=== PATIENT | male | born 1940 | race Caucasian/White ===

== ENCOUNTER 2019-02-15 11:22 | Inpatient (IN) ==
[2019-02-15] MEDS ORDERED: Haloperidol Oral Conc 10 MG/5 ML UDC GTUBE PRN (16:41)
[2019-02-15] MEDS: hydrALAZINE 25 MG TABLET GTUBE SCH (23:46)
[2019-02-16 05:50] LABS: Basophils % 0.6 %; Eosinophils # 0.5 K/mcL (0.0-0.6); Eosinophils % 9.3 %; Hematocrit 33.4 % (37.5-50.1); Immature Granulocytes % 0.6 % (0-4); Lymphocytes # 1.6 K/mcL (0.6-4.6); Lymphocytes % 33.6 %; Mean Corpuscular HGB Conc 32.9 g/dL (31.6-35.5); Mean Corpuscular Hemoglobin 33.1 pg (28.0-33.3); Mean Corpuscular Volume 100.6 fL (83.0-100.0); Mean Platelet Volume 11.4 fL (9.4-12.4); Monocytes # 0.9 K/mcL (0.0-1.3); Monocytes % 17.5 %; Neutrophils # 1.9 K/mcL (1.6-8.9); Platelet Count 193 K/mcL (140-400); Red Blood Count 3.32 M/mcL (4.19-5.50); Segmented Neutrophils % 38.4 %; White Blood Count 4.9 K/mcL (4.3-11.1)
[2019-02-16 05:54] LABS: INR 1.3; Prothrombin Time 14.7 Seconds (9.4-12.1)
[2019-02-16 05:57] LABS: Activated Partial Thrombo Time 30.6 Seconds (26.0-36.0)
[2019-02-16 06:06] LABS: Alanine Aminotransferase 33 Units/L (7-52); Albumin 3.1 g/dL (3.5-5.7); Albumin/Globulin Ratio 1.3 (1.1-2.2); Alkaline Phosphatase 62 Units/L (34-104); Aspartate Amino Transferase 33 Units/L (13-39); BUN/Creatinine Ratio 15 (6-26); Bilirubin,Total 0.6 mg/dL (0.3-1.0); Blood Urea Nitrogen 12 mg/dL (8-23); Calcium 8.4 mg/dL (8.6-10.3); Carbon Dioxide 26 mEq/L (23-29); Chloride 99 mEq/L (98-107); Globulin 2.4 g/dL (2.4-3.5); Glucose 132 mg/dL (70-105); Osmolality,Calculated 272 (280-300); Potassium 4.1 mEq/L (3.5-5.1); Sodium 130 mEq/L (136-145); Total Protein 5.5 g/dL (6.4-8.9); eGFR For African Americans > 60 (> 60); eGFR For Non-African Americans > 60 (> 60)
[2019-02-16] MEDS: Multivit/Ca/Min/Fe/FA 1 TAB TABLET GTUBE SCH (09:22)
[2019-02-16] MEDS: hydrALAZINE 25 MG TABLET GTUBE SCH ×3 (09:23→23:36)
[2019-02-16] MEDS: Aspirin 81 MG TAB.CHEW GTUBE SCH (09:23)
[2019-02-16] MEDS: FLUoxetine HCl Oral Soln 20 MG/5 ML UDC GTUBE SCH (09:23)
[2019-02-16] MEDS: amLODIPine 5 MG TABLET GTUBE SCH (09:23)
--- NOTE | 2019-02-16 10:24 | Internal Med History&Physical ---
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 Patient [facility] with TPA prior to being transferred to [facility] for further treatment. Patient recovery documented with issues of delirium, dysarthria and dysphagia. Patient currently has garbled speech and unable to follow any complex commands. Patient has been uncooperative with care per nursing. Patient remains nothing by mouth and has total nutrition by gastrostomy tube. Patient had no motor deficits noted on exam. We will maintain a systolic blood pressure goal of less than 160. Vital signs been stable. Physical therapy evaluation pending with recommendations. Patient also has been seen by psychology with further recommendations pending. We will continue with current medications Qualifiers: CVA mechanism: unspecified Qualified Code(s): I63.9 - Cerebral infarction, unspecified (2) BPH (benign prostatic hyperplasia) Current visit: Yes Status: Chronic Patient with history of BPH. No current issues. We will continue with current medications. Qualifiers: Lower urinary tract symptom presence: unspecified whether lower urinary tract symptoms present Qualified Code(s): N40.0 - Benign prostatic hyperplasia without lower urinary tract symptoms (3) Hypertension Current visit: No Status: Chronic Vital signs stable during his stay. We will continue with current medications. We will have a systolic blood pressure goal of maintaining less than 160. Qualifiers: Hypertension type: unspecified Qualified Code(s): I10 - Essential (primary) hypertension (4) Delirium Current visit: Yes Status: Acute She continues with delirium, being uncooperative with nursing care. Patient noted to have difficulty following complex directions without was noted to have some compliance when simple tests were demonstrated. Patient continues with expressive aphasia with questionable receptive aphasia. We will continue with Seroquel at at bedtime. Patient to continue with therapy. (5) Dysphagia Current visit: Yes Status: Acute Patient continues with dysphagia remains nothing by mouth with total nutrition through tube feedings. Patient to continue with speech therapy evaluation and treatment. Patient currently on Osmolite 1.2 at 40 mL an hour. Awaiting recom mendations to dietary. We will monitor patient's weight and nutritional status to labs. Qualifiers: Dysphagia type: unspecified Qualified Code(s): R13.10 - Dysphagia, unspecified Internal Medicine - H&P: HPI Chief complaint: right CVA Admitted From: Hospital to Hospital Transfer Plans for Post Hospital Care: Home History of present illness: Mr. Magana is a 78 year old male, who was transferred to this facility from [facility] after being treated for a right temporal CVA. Patient had an ischemic CVA that had later converted to hemorrhagic with a subarachnoid extension. Patient was initially seen at [facility] and treated with TPA prior to being transferred to [facility]. Follow-up imaging remained stable during his stay at [facility]. Patient was treated at [facility] acutely for his CVA and per medical records showed no motor deficits, but did have both dysarthria and delirium. Patient with questionable receptive aphasia, as noted during exam where he is able to follow simple commands by demonstration. Patient has been uncooperative with treatment and care, per nursing reports and was uncooperative for complexed past during his exam. Patient's speech remains garbled with repetitive phrases at times understood. Patient was evaluated by speech therapy at [facility] and was discharged with a peg tube in place and is to remain nothing by mouth. He has total nutritional support per PEG tube. Hx of HTN, which has been well controlled during his recovery. Patient with Hx of BPH and continues on medication. No reports or retention noted. Hx being obtained per medical records. No family present and patient is unable to provide Hx Past Med Surg Social Fam HX - Past Medical History Source: old records reviewed Medical history: glaucoma, hyperlipidemia, hypertension, other (BPH) Psychiatric history: no psych history, other (delirium) - Past Surgical History Additional surgical history: tonsillectomy, heart cath x 2 (no intervention), evac of brain hematoma. - Social History Smoking Status: Never smoker Smokeless Tobacco Status: No Alcohol use: occasionally Drug use: none - Family History Father Living Status: Hx Family Cardiac Disorders: Yes Internal Medicine - H&P: Meds Losartan Potassium [Cozaar] 100 mg PO DAILY 06/29/17 [History] Aspirin [Lo-Dose Aspirin EC] 81 mg PO DAILY 01/20/19 [History] Rosuvastatin [Crestor] 20 mg PO DAILY 01/20/19 [History] Amlodipine Besylate 10 mg PO DAILY 02/15/19 [History] Carvedilol 37.5 mg PO Q12HR 02/15/19 [History] Doxazosin [Cardura] 1 mg PO HS 02/15/19 [History] Esomeprazole Magnesium [Nexium] 40 mg PO BID 02/15/19 [History] FLUoxetine HCl [Fluoxetine HCl] 5 ml PO DAILY 02/15/19 [History] Multivitamin [Daily Multiple Vitamin] 1 each PO DAILY 02/15/19 [History] Quetiapine Fumarate [SEROquel] 12.5 mg PO HS 02/15/19 [History] hydrALAZINE [HydrALAZINE] 75 mg PO Q8HR 02/15/19 [History] Allergy/AdvReac Type Severity Reaction Status Date / Time Penicillins Allergy See Verified 06/29/18 16:36 Comments Poison Amanda Extract Allergy See Verified 02/15/19 18:01 Comments shellfish derived Allergy Rash Verified 06/29/18 16:36 ROS unobtainable: due to mental status All Systems PM: A 10-system review of systems was performed and is negative for pertinent findings except as documented above in the HPI. - Constitutional Constitutional: as per HPI, no chills, no fever(s), no night sweats - EENT Eyes: as per HPI, no change in vision, no discharge, no pain, no photophobia Ears: as per HPI, no ear discharge, no ear pain, no tinnitus Nose, mouth and throat: as per HPI, no dysphagia, no nasal discharge, no neck pain, no sore throat - Breasts Breasts: as per HPI - Cardiovascular Cardiovascular ROS IM: as per HPI, no chest pain, no diaphoresis, no dyspnea, no lightheadedness, no palpitations, no syncope - Respiratory Respiratory: as per HPI, no cough, no dyspnea, no wheezing, no excessive phlegm production - Gastrointestinal Gastrointestinal: as per HPI, no abdominal pain, no diarrhea, no hematemesis, no hematochezia, no melena, no nausea, no vomiting - Genitourinary Genitourinary ROS male: as per HPI - Musculoskeletal Musculoskeletal ROS IM: as per HPI, no numbness, no tingling - Integumentary Integumentary IM: as per HPI, no rash, no unusual bruising - Neurological Neurological ROS: as per HPI, no confusion, no convulsions, no focal weakness, no numbness, no tingling, no tremor(s) - Psychiatric Psychiatric: as per HPI - Hematologic/Lymphatic Hematologic/Lymphatic: no easy bruising - Constitutional Vitals: Temp Pulse Resp BP Pulse Ox 98.7 F 68 20 121/54 94 02/16/19 08:30 02/16/19 08:30 02/16/19 08:30 02/16/19 08:30 02/16/19 08:30 General appearance: Present: A&O X 1 Exam: Patient opens eyes to verbal and seems to respond to name with possbile Ox1 to name. Otherwise, unable to assess orientation due to garbled speech and mostly uncooperative. Patient has been uncooperative with nursing care and does not follow any complex commands. Patient noted to follow simple task when visual example is used. - Head Head exam: Present: atraumatic, normocephalic - Eye Eye exam: Present: PERRL, conjuntiva pink, sclera anicteric Pupils: Present: PERRL - Neck Neck exam general surgery: Present: supple, trachea midline. Absent: lymphadenopathy - Respiratory Respiratory exam: Present: decreased breath sounds, CTAB. Absent: accessory muscle use, rales, rhonchi, wheezes - Cardiovascular Cardiovascular exam: Present: RRR, +S1, +S2. Absent: diastolic murmur, gallop, rubs, systolic murmur - GI/Abdominal GI/Abdominal exam: Present: normal bowel sounds, soft, no peritoneal signs. Absent: distended, tenderness Additional comments: peg tube in place with TF infusing - Extremities Exam Extremities exam: Present: warm, radial pulses palpable and symmetrical. Absent: calf tenderness, cyanotic, pedal edema - Neurological Exam Neurological exam: Present: no focal deficits, speech deficit. Absent: pronater drift, facial droop Additional comments: Exam limited due to confusion. Garbled speech, but at times able to understand phrases, which is freq. repeats. Follows some simple commands by providing visual examples. Reports on ongoing confusion and being uncooperative with nursing care. PINZON with 5/5 MS. No hyperreflexia. - Skin Skin exam: Present: dry, intact Internal Med - H&P Results - Labs CBC & Chem 7: 02/16/19 05:30 02/16/19 05:30 Labs: Short CBC 02/16/19 Range/Units 05:30 WBC 4.9 (4.3-11.1) K/mcL Hgb 11.0 L (12.9-16.9) g/dL Hct 33.4 L (37.5-50.1) % Plt Count 193 (140-400) K/mcL Neutrophils # 1.9 (1.6-8.9) K/mcL BMP 02/16/19 05:30 Sodium 130 L Potassium 4.1 Chloride 99 Carbon Dioxide 26 BUN 12 Creatinine 0.79 Glucose 132 H Calcium 8.4 L Liver Function 02/16/19 Range/Units 05:30 Total Bilirubin 0.6 (0.3-1.0) mg/dL AST 33 (13-39) Units/L ALT 33 (7-52) Units/L Alkaline Phosphatase 62 (34-104) Units/L Albumin 3.1 L (3.5-5.7) g/dL - VTE Documentation of Mechanical Device: Graduated compression elastic hosiery
[2019-02-17] MEDS: hydrALAZINE 25 MG TABLET GTUBE SCH ×3 (07:56→22:39)
[2019-02-17] MEDS: Aspirin 81 MG TAB.CHEW GTUBE SCH (07:57)
[2019-02-17] MEDS: Multivit/Ca/Min/Fe/FA 1 TAB TABLET GTUBE SCH (07:57)
[2019-02-17] MEDS: amLODIPine 5 MG TABLET GTUBE SCH (07:57)
[2019-02-17] MEDS: FLUoxetine HCl Oral Soln 20 MG/5 ML UDC GTUBE SCH (09:59)
--- NOTE | 2019-02-17 10:28 | Internal Med Progress Note ---
Date of Encounter: 02/17/19 Time of Encounter: 10:25 - Assessment and plan (1) CVA (cerebral vascular accident) Current Visit: Yes Status: Acute Assessment and plan: Patient with a right temporal lobe CVA, resulting and hemorrhagic conversion and small SAH. Patient continues with garbled speech and with what appears as receptive aphasia. Patient becomes very restless and at times agitated during care. Patient has been showing poor cooperation with therapy and will be changed to a swing status. No motor deficits noted on exam. We will continue with therapy and current plan of care. We will continue with a blood pressure goal of less than 160. Qualifiers: CVA mechanism: unspecified Qualified Code(s): I63.9 - Cerebral infarction, unspecified (2) BPH (benign prostatic hyperplasia) Current Visit: Yes Status: Chronic Assessment and plan: No acute issues during his stay here. We will continue to monitor patient's voiding. Qualifiers: Lower urinary tract symptom presence: unspecified whether lower urinary tract symptoms present Qualified Code(s): N40.0 - Benign prostatic hyperplasia without lower urinary tract symptoms (3) Hypertension Current Visit: No Status: Chronic Assessment and plan: No acute issues. We will continue to maintain a systolic blood pressure goal of less than 160. Patient did have 1 reading that showed systolic of 182. Will start patient on when necessary clonidine. Qualifiers: Hypertension type: unspecified Qualified Code(s): I10 - Essential (primary) hypertension (4) Delirium Current Visit: Yes Status: Acute Assessment and plan: Patient continues to have poor cooperation with staff during ADLs and therapy. Patient has been changed to a swing status. Nursing reports no behavior issues during the night. Nursing will attend to have limited interaction during the night to ensure patient sleeps, to avoid sleep deprivation as his possible reason for delirium. (5) Dysphagia Current Visit: Yes Status: Acute Assessment and plan: Patient continues with garbled speech. At times patient will have a one-word answers that will be clear. Patient continues with total nutritional intake per gastrostomy tube and remains nothing by mouth Qualifiers: Dysphagia type: unspecified Qualified Code(s): R13.10 - Dysphagia, unspecified - Time Spent With Patient less than 15 minutes - Subjective Interval history: Patient appears alert and is able to answer simple responses such as hello, but unable to answer any complex questioning. Patient's speech remains garbled, but at times he will have clear words, which she has been noted to repeat. Patient's therapy has been limited due to his inability to cooperate. Patient with difficulty on following directions, but has been noted to follow simple com mands through demonstration. Today nursing reports no behavior issues through the night. - Constitutional Vitals: Temp Pulse Resp BP Pulse Ox 100.5 F H 70 17 130/62 95 02/17/19 08:19 02/17/19 08:19 02/17/19 08:19 02/17/19 08:19 02/17/19 08:19 General appearance: Present: A&O X 1 Exam: Patient does track and appears to recognize his name. Response to readings with a low, but unable to answer any more complexing questions. When patient does speak his speech remains garbled. Patient unable to follow most commands although patient has been observed following simple commands through demonstration. - Head Head exam: Present: atraumatic, normocephalic - Eye Eye exam: Present: PERRL, conjuntiva pink, sclera anicteric Pupils: Present: PERRL - Neck Neck exam general surgery: Present: supple, trachea midline. Absent: lymphadenopathy - Respiratory Respiratory exam: Present: decreased breath sounds, CTAB. Absent: accessory muscle use, rales, rhonchi, wheezes - Cardiovascular Cardiovascular exam: Present: RRR, +S1, +S2. Absent: diastolic murmur, gallop, rubs, systolic murmur - GI/Abdominal GI/Abdominal exam: Present: normal bowel sounds, soft, no peritoneal signs. Absent: distended, tenderness Additional comments: Gastrostomy tube in place with insertion site appearing healthy. Patient with tube feeding infusing at 60 mL an hour. - Extremities Exam Extremities exam: Present: warm, radial pulses palpable and symmetrical. Absent: calf tenderness, cyanotic, pedal edema - Neurological Exam Neurological exam: Present: oriented X3, no focal deficits. Absent: pronater drift, facial droop, speech deficit Additional comments: Exam limited due to patient's inability to verbalize or follow any commands. Patient has garbled speech and has been suspected of receptive aphasia due to his inability to follow directions, but showing some compliance with simple commands strain demonstration. No motor deficits noted on exam with extremities movement spontaneously with a 5/5 muscle strength. - Skin Skin exam: Present: dry, intact Internal Medicine: Result - Labs CBC & Chem 7: 02/16/19 05:30 02/16/19 05:30 - ABG Interpretation ABG results: PT/INR, D-dimer PT 14.7 Seconds (9.4-12.1) H 02/16/19 05:30 - VTE Documentation of Mechanical Device: Graduated compression elastic hosiery Consult Discharge Plan - Plan Referrals: Nicolás Marshall DO [Primary Care Provider] -
[2019-02-18] MEDS: hydrALAZINE 25 MG TABLET GTUBE SCH ×3 (09:49→23:56)
[2019-02-18] MEDS: amLODIPine 5 MG TABLET GTUBE SCH (09:50)
[2019-02-18] MEDS: Multivit/Ca/Min/Fe/FA 1 TAB TABLET GTUBE SCH (09:50)
[2019-02-18] MEDS: Aspirin 81 MG TAB.CHEW GTUBE SCH (09:50)
[2019-02-18] MEDS: FLUoxetine HCl Oral Soln 20 MG/5 ML UDC GTUBE SCH (09:50)
--- NOTE | 2019-02-18 10:47 | Internal Med Progress Note ---
Date of Encounter: 02/18/19 Time of Encounter: 10:44 - Assessment and plan (1) CVA (cerebral vascular accident) Current Visit: Yes Status: Acute Assessment and plan: Continue PT, OT and ST. Will follow progress. No new neurological deficits. Follow up with neurologist as scheduled. Qualifiers: CVA mechanism: unspecified Qualified Code(s): I63.9 - Cerebral infarction, unspecified (2) Hypertension Current Visit: Yes Status: Chronic Assessment and plan: Controlled with current medication. Monitor blood pressure. Qualifiers: Hypertension type: unspecified Qualified Code(s): I10 - Essential (primary) hypertension (3) BPH (benign prostatic hyperplasia) Current Visit: Yes Status: Chronic Assessment and plan: No new symptoms. Continue current medication. Qualifiers: Lower urinary tract symptom presence: unspecified whether lower urinary tract symptoms present Qualified Code(s): N40.0 - Benign prostatic hyperplasia without lower urinary tract symptoms (4) Delirium Current Visit: Yes Status: Acute Assessment and plan: Possibly due to sleep deprivation. Discussed with therapy and nursing staff to decreased stimuli and provide rest breaks in between therapy. (5) Dysphagia Current Visit: Yes Status: Acute Assessment and plan: Continue enternal feeds through G-tube. Qualifiers: Dysphagia type: unspecified Qualified Code(s): R13.10 - Dysphagia, unspecified - Time Spent With Patient less than 15 minutes - Subjective Interval history: resting in bed, responds off and on to questions with single words. nursing staff reports pt continues to be anxious and fidgeting at times. discussed with nursing and therapy staff that this could be due to sleep deprivation and will need to provide rest and decrease stimuli. unable to participate in HPI. reported diarrhea last night but none today so far. - Constitutional Vitals: Temp Pulse Resp BP Pulse Ox 99.3 F 70 16 124/63 94 02/18/19 08:06 02/18/19 08:06 02/18/19 08:06 02/18/19 08:06 02/18/19 08:06 General appearance: Present: A&O X 1, no acute distress - Head Head exam: Present: atraumatic, normocephalic - Eye Eye exam: Present: PERRL, conjuntiva pink, sclera anicteric Pupils: Present: PERRL - Neck Neck exam general surgery: Present: supple, trachea midline. Absent: lymphadenopathy - Respiratory Respiratory exam: Present: CTAB. Absent: accessory muscle use, rales, rhonchi, wheezes - Cardiovascular Cardiovascular exam: Present: RRR, +S1, +S2. Absent: diastolic murmur, gallop, rubs, systolic murmur - GI/Abdominal GI/Abdominal exam: Present: normal bowel sounds, soft, no peritoneal signs. Absent: distended, tenderness Additional comments: g-tube site nonindurated. - Extremities Exam Extremities exam: Present: warm, radial pulses palpable and symmetrical. Absent: calf tenderness, cyanotic, pedal edema - Neurological Exam Neurological exam: Present: CN II-XII intact, oriented X3, no focal deficits. Absent: pronater drift, facial droop, speech deficit - Skin Skin exam: Present: dry, intact Internal Medicine: Result - Labs CBC & Chem 7: 02/16/19 05:30 02/16/19 05:30 - ABG Interpretation ABG results: PT/INR, D-dimer PT 14.7 Seconds (9.4-12.1) H 02/16/19 05:30 - VTE Documentation of Mechanical Device: Graduated compression elastic hosiery Consult Discharge Plan - Plan Referrals: Nicolás Marshall DO [Primary Care Provider] -
[2019-02-19] MEDS: hydrALAZINE 25 MG TABLET GTUBE SCH ×2 (08:02→17:23)
[2019-02-19] MEDS: FLUoxetine HCl Oral Soln 20 MG/5 ML UDC GTUBE SCH (08:02)
[2019-02-19] MEDS: Aspirin 81 MG TAB.CHEW GTUBE SCH (08:02)
[2019-02-19] MEDS: amLODIPine 5 MG TABLET GTUBE SCH (08:02)
[2019-02-19] MEDS: Multivit/Ca/Min/Fe/FA 1 TAB TABLET GTUBE SCH (08:02)
--- NOTE | 2019-02-19 08:43 | Internal Med Progress Note ---
Date of Encounter: 02/19/19 Time of Encounter: 08:41 - Assessment and plan (1) Hypertension Current Visit: Yes Status: Chronic Assessment and plan: stable at the present time on meds getting his meds via PEG overall doing fine Qualifiers: Hypertension type: essential hypertension Qualified Code(s): I10 - Essential (primary) hypertension (2) CVA (cerebral vascular accident) Current Visit: Yes Status: Acute Assessment and plan: s/p Internal hemorrhage after ischemic CVA awake responds to command . continue present management Rehab . Hoepfully fucntion will improve with time . Qualifiers: CVA mechanism: unspecified Qualified Code(s): I63.9 - Cerebral infarction, unspecified (3) BPH (benign prostatic hyperplasia) Current Visit: Yes Status: Chronic Assessment and plan: on meds and stable Qualifiers: Lower urinary tract symptom presence: unspecified whether lower urinary tract symptoms present Qualified Code(s): N40.0 - Benign prostatic hyperplasia witho ut lower urinary tract symptoms - Subjective Interval history: Cross coverage . Pt with hx of CVA with later intracranial bleed . he is arousal says few word s and then closes his eyes agai no acute distress at the present time - Constitutional Vitals: Temp Pulse Resp BP Pulse Ox 98.8 F 66 18 117/65 94 02/19/19 07:36 02/19/19 07:36 02/19/19 07:36 02/19/19 07:36 02/19/19 07:36 General appearance: Present: cooperative, A&O X 1, no acute distress Exam: wakes up on command - Head Head exam: Present: atraumatic - Eye Eye exam: Present: EOMI, PERRL Additional comments: closes his both eye together unable to assess if neurological deficit is present - Neck Neck exam general surgery: Present: supple. Absent: tenderness, nuchal rigidity - Respiratory Respiratory exam: Present: CTAB. Absent: prolonged expiratory phase, rales, respiratory distress, rhonchi, stridor, wheezes - Cardiovascular Cardiovascular exam: Present: RRR, +S1, +S2. Absent: JVD, systolic murmur, tachycardia - GI/Abdominal GI/Abdominal exam: Present: normal bowel sounds, soft. Absent: diminished bowel sounds, distended, guarding, rebound, tenderness - Extremities Exam Extremities exam: Absent: pedal edema - Neurological Exam Additional comments: Awake , opens his eyes then shuts closely , doesn't follow command when noted that he could move his legs and arms with stimulus unable to assess cranial nerve deficit however no apparent deviation of face or tongue noted Internal Medicine: Result - Labs CBC & Chem 7: 02/16/19 05:30 02/16/19 05:30 - ABG Interpretation ABG results: PT/INR, D-dimer PT 14.7 Seconds (9.4-12.1) H 02/16/19 05:30 - VTE Documentation of Mechanical Device: Graduated compression elastic hosiery Consult Discharge Plan - Plan Referrals: Nicolás Marshall, [Primary Care Provider] -
[2019-02-20] MEDS: hydrALAZINE 25 MG TABLET GTUBE SCH ×4 (00:06→22:27)
--- NOTE | 2019-02-20 08:03 | Internal Med Progress Note ---
Date of Encounter: 02/20/19 Time of Encounter: 08:01 - Assessment and plan (1) Hypertension Current Visit: Yes Status: Chronic Assessment and plan: Multiple meds , BP is good control if continue to be so good may consider backing off on some as for his age and condition too much orf tight control might cause fall risks later. Qualifiers: Hypertension type: essential hypertension Qualified Code(s): I10 - Essential (primary) hypertension (2) CVA (cerebral vascular accident) Current Visit: Yes Status: Acute Assessment and plan: s/p Internal hemorrhage after ischemic CVA awake responds to command to simple command . Still obtunted but responsive . Avoid all sedatives Qualifiers: CVA mechanism: unspecified Qualified Code(s): I63.9 - Cerebral infarction, unspecified (3) BPH (benign prostatic hyperplasia) Current Visit: Yes Status: Chronic Assessment and plan: on meds and stable . BPH by Hx Qualifiers: Lower urinary tract symptom presence: unspecified whether lower urinary tract symptoms present Qualified Code(s): N40.0 - Benign prostatic hyperplasia w ithout lower urinary tract symptoms - Subjective Interval history: Cross coverage . No new issues noted he opened his eyes on command but then closed it again , opens right eye only left opens but is preferring not to at the present time - Constitutional Vitals: Temp Pulse Resp BP Pulse Ox 98.4 F 72 15 109/63 95 02/20/19 07:24 02/20/19 07:24 02/20/19 07:24 02/20/19 07:24 02/20/19 07:24 General appearance: Present: cooperative, A&O X 1, no acute distress - Eye Eye exam: Present: EOMI, PERRL Additional comments: prefers not to open left eye doesn't seems paralysed - Neck Neck exam general surgery: Present: supple. Absent: tenderness, nuchal rigidity - Respiratory Respiratory exam: Present: CTAB. Absent: chest wall tenderness, rales, respiratory distress - Cardiovascular Cardiovascular exam: Present: RRR, +S1, +S2. Absent: irregular rhythm, JVD - GI/Abdominal GI/Abdominal exam: Present: normal bowel sounds, soft. Absent: rigid, tenderness, no peritoneal signs Additional comments: PEG patent - Extremities Exam Extremities exam: Absent: pedal edema - Neurological Exam Additional comments: pt responds to command opened his eye and then closed stated he is OK but then no response. He was able to move his right arm and leg , left I am not sure at the present time No obvious cranial nerves deficit noted Internal Medicine: Result - Labs CBC & Chem 7: 02/16/19 05:30 02/16/19 05:30 - ABG Interpretation ABG results: PT/INR, D-dimer PT 14.7 Seconds (9.4-12.1) H 02/16/19 05:30 - VTE Documentation of Mechanical Device: Graduated compression elastic hosiery Consult Discharge Plan - Plan Referrals: Nicolás Marshall DO [Primary Care Provider] -
[2019-02-20] MEDS: FLUoxetine HCl Oral Soln 20 MG/5 ML UDC GTUBE SCH (09:40)
[2019-02-20] MEDS: Aspirin 81 MG TAB.CHEW GTUBE SCH (09:41)
[2019-02-20] MEDS: Multivit/Ca/Min/Fe/FA 1 TAB TABLET GTUBE SCH (09:41)
[2019-02-20] MEDS: amLODIPine 5 MG TABLET GTUBE SCH (09:41)
[2019-02-20] MEDS: Latanoprost 2.5 ML BOTTLE BOTH EYES SCH (22:28)
[2019-02-21 06:05] LABS: Basophils % 0.7 %; Eosinophils # 0.4 K/mcL (0.0-0.6); Hematocrit 32.9 % (37.5-50.1); Hemoglobin 10.6 g/dL (12.9-16.9); Immature Granulocytes % 0.3 % (0-4); Lymphocytes % 32.8 %; Mean Corpuscular HGB Conc 32.2 g/dL (31.6-35.5); Mean Corpuscular Hemoglobin 32.5 pg (28.0-33.3); Mean Corpuscular Volume 100.9 fL (83.0-100.0); Mean Platelet Volume 11.3 fL (9.4-12.4); Monocytes # 0.6 K/mcL (0.0-1.3); Monocytes % 9.3 %; Neutrophils # 3.1 K/mcL (1.6-8.9); Platelet Count 160 K/mcL (140-400); Red Blood Count 3.26 M/mcL (4.19-5.50); Red Cell Distribution Width 14.3 % (11.5-14.5); Segmented Neutrophils % 49.9 %; White Blood Count 6.1 K/mcL (4.3-11.1)
[2019-02-21 06:34] LABS: Alanine Aminotransferase 47 Units/L (7-52); Albumin 3.1 g/dL (3.5-5.7); Albumin/Globulin Ratio 1.1 (1.1-2.2); Alkaline Phosphatase 90 Units/L (34-104); Aspartate Amino Transferase 42 Units/L (13-39); BUN/Creatinine Ratio 30 (6-26); Bilirubin,Total 0.6 mg/dL (0.3-1.0); Blood Urea Nitrogen 25 mg/dL (8-23); Calcium 8.5 mg/dL (8.6-10.3); Carbon Dioxide 27 mEq/L (23-29); Chloride 99 mEq/L (98-107); Globulin 2.8 g/dL (2.4-3.5); Glucose 144 mg/dL (70-105); Osmolality,Calculated 281 (280-300); Potassium 4.4 mEq/L (3.5-5.1); Sodium 132 mEq/L (136-145); Total Protein 5.9 g/dL (6.4-8.9); eGFR For African Americans > 60 (> 60); eGFR For Non-African Americans > 60 (> 60)
[2019-02-21] MEDS: hydrALAZINE 25 MG TABLET GTUBE SCH ×2 (08:56→17:25)
[2019-02-21] MEDS: Multivit/Ca/Min/Fe/FA 1 TAB TABLET GTUBE SCH (08:56)
[2019-02-21] MEDS: Aspirin 81 MG TAB.CHEW GTUBE SCH (08:56)
[2019-02-21] MEDS: amLODIPine 5 MG TABLET GTUBE SCH (08:56)
[2019-02-21] MEDS: FLUoxetine HCl Oral Soln 20 MG/5 ML UDC GTUBE SCH (08:56)
--- NOTE | 2019-02-21 10:00 | Internal Med Progress Note ---
Date of Encounter: 02/21/19 Time of Encounter: 09:58 - Assessment and plan (1) CVA (cerebral vascular accident) Current Visit: Yes Status: Acute Assessment and plan: Continue PT, OT and ST. Will follow progress. No new neurological deficits. Follow up with neurologist as scheduled. Qualifiers: CVA mechanism: unspecified Qualified Code(s): I63.9 - Cerebral infarction, unspecified (2) Hypertension Current Visit: Yes Status: Chronic Assessment and plan: Controlled with current medication. Monitor blood pressure. Qualifiers: Hypertension type: essential hypertension Qualified Code(s): I10 - Essential (primary) hypertension (3) BPH (benign prostatic hyperplasia) Current Visit: Yes Status: Chronic Assessment and plan: No new symptoms. Continue current medication. Qualifiers: Lower urinary tract symptom presence: unspecified whether lower urinary tract symptoms present Qualified Code(s): N40.0 - Benign prostatic hyperplasia without lower urinary tract symptoms (4) Delirium Current Visit: Yes Status: Acute Assessment and plan: Possibly due to sleep deprivation. Discussed with therapy and nursing staff to decreased stimuli and provide rest breaks in between therapy. (5) Dysphagia Current Visit: Yes Status: Acute Assessment and plan: Continue enternal feeds through G-tube. Qualifiers: Dysphagia type: unspecified Qualified Code(s): R13.10 - Dysphagia, unspecified - Time Spent With Patient less than 15 minutes - Subjective Interval history: nursing staff reports pt continues to be anxious and fidgeting at times. overstimulated, continue to provide rest and decrease stimuli. unable to participate in HPI. - Constitutional Vitals: Temp Pulse Resp BP Pulse Ox 98.2 F 68 16 124/66 96 02/21/19 06:54 02/21/19 06:54 02/21/19 06:54 02/21/19 06:54 02/21/19 06:54 General appearance: Present: cooperative, A&O X 1, no acute distress Exam: lying in bed - Head Head exam: Present: atraumatic, normocephalic - Eye Eye exam: Present: PERRL, conjuntiva pink, sclera anicteric Pupils: Present: PERRL - Neck Neck exam general surgery: Present: supple, trachea midline. Absent: lymphadenopathy - Respiratory Respiratory exam: Present: CTAB. Absent: accessory muscle use, rales, rhonchi, wheezes - Cardiovascular Cardiovascular exam: Present: RRR, +S1, +S2. Absent: diastolic murmur, gallop, rubs, systolic murmur - GI/Abdominal GI/Abdominal exam: Present: normal bowel sounds, soft, no peritoneal signs. Absent: distended, tenderness - Extremities Exam Extremities exam: Present: warm, radial pulses palpable and symmetrical. Absent: calf tenderness, cyanotic, pedal edema - Neurological Exam Neurological exam: Present: CN II-XII intact, oriented X3, no focal deficits. Absent: pronater drift, facial droop, speech deficit - Skin Skin exam: Present: dry, intact Internal Medicine: Result - Labs CBC & Chem 7: 02/21/19 05:30 02/21/19 05:30 Labs: Short CBC 02/21/19 Range/Units 05:30 WBC 6.1 (4.3-11.1) K/mcL Hgb 10.6 L (12.9-16.9) g/dL Hct 32.9 L (37.5-50.1) % Plt Count 160 (140-400) K/mcL Neutrophils # 3.1 (1.6-8.9) K/mcL BMP 02/21/19 05:30 Sodium 132 L Potassium 4.4 Chloride 99 Carbon Dioxide 27 BUN 25 H Creatinine 0.82 Glucose 144 H Calcium 8.5 L Liver Function 02/21/19 Range/Units 05:30 Total Bilirubin 0.6 (0.3-1.0) mg/dL AST 42 H (13-39) Units/L ALT 47 (7-52) Units/L Alkaline Phosphatase 90 (34-104) Units/L Albumin 3.1 L (3.5-5.7) g/dL - ABG Interpretation ABG results: PT/INR, D-dimer PT 14.7 Seconds (9.4-12.1) H 02/16/19 05:30 - VTE Documentation of Mechanical Device: Graduated compression elastic hosiery Consult Discharge Plan - Plan Referrals: Nicolás Marshall DO [Primary Care Provider] -
[2019-02-21] MEDS: Latanoprost 2.5 ML BOTTLE BOTH EYES SCH (22:36)
[2019-02-22] MEDS: hydrALAZINE 25 MG TABLET GTUBE SCH ×4 (01:34→22:38)
[2019-02-22] MEDS: amLODIPine 5 MG TABLET GTUBE SCH (08:37)
[2019-02-22] MEDS: Multivit/Ca/Min/Fe/FA 1 TAB TABLET GTUBE SCH (08:37)
[2019-02-22] MEDS: FLUoxetine HCl Oral Soln 20 MG/5 ML UDC GTUBE SCH (08:37)
[2019-02-22] MEDS: Aspirin 81 MG TAB.CHEW GTUBE SCH (08:37)
--- NOTE | 2019-02-22 12:04 | Internal Med Progress Note ---
Date of Encounter: 02/22/19 Time of Encounter: 12:02 - Assessment and plan (1) CVA (cerebral vascular accident) Current Visit: Yes Status: Acute Assessment and plan: Continue PT, OT and ST. Will follow progress. No new neurological deficits. Follow up with neurologist as scheduled. Qualifiers: CVA mechanism: unspecified Qualified Code(s): I63.9 - Cerebral infarction, unspecified (2) Hypertension Current Visit: Yes Status: Chronic Assessment and plan: Controlled with current medication. Monitor blood pressure. Qualifiers: Hypertension type: essential hypertension Qualified Code(s): I10 - Essential (primary) hypertension (3) BPH (benign prostatic hyperplasia) Current Visit: Yes Status: Chronic Assessment and plan: No new symptoms. Continue current medication. Qualifiers: Lower urinary tract symptom presence: unspecified whether lower urinary tract symptoms present Qualified Code(s): N40.0 - Benign prostatic hyperplasia without lower urinary tract symptoms (4) Dysphagia Current Visit: Yes Status: Acute Assessment and plan: Continue enternal feeds through G-tube. Qualifiers: Dysphagia type: unspecified Qualified Code(s): R13.10 - Dysphagia, unspecified - Time Spent With Patient less than 15 minutes - Subjective Interval history: sitting up in chair, apears comfortable, no acute distress, was able to answer a coulple questions with 1 worded response. continue to provide rest and decrease stimuli. difficult to obtain full HPI. - Constitutional Vitals: Temp Pulse Resp BP Pulse Ox 98.0 F 72 20 125/65 94 02/22/19 07:30 02/22/19 07:30 02/22/19 07:30 02/22/19 07:30 02/22/19 07:30 General appearance: Present: cooperative, A&O X 1, no acute distress - Head Head exam: Present: atraumatic, normocephalic - Eye Eye exam: Present: PERRL, conjuntiva pink, sclera anicteric Pupils: Present: PERRL - Neck Neck exam general surgery: Present: supple, trachea midline. Absent: lymphadenopathy - Respiratory Respiratory exam: Present: CTAB. Absent: accessory muscle use, rales, rhonchi, wheezes - Cardiovascular Cardiovascular exam: Present: RRR, +S1, +S2. Absent: diastolic murmur, gallop, rubs, systolic murmur - GI/Abdominal GI/Abdominal exam: Present: normal bowel sounds, soft, no peritoneal signs. Absent: distended, tenderness Additional comments: g tube site nonindurated. - Extremities Exam Extremities exam: Present: warm, radial pulses palpable and symmetrical. Absent: calf tenderness, cyanotic, pedal edema - Neurological Exam Neurological exam: Present: CN II-XII intact, oriented X3, no focal deficits. Absent: pronater drift, facial droop, speech deficit - Skin Skin exam: Present: dry, intact Internal Medicine: Result - Labs CBC & Chem 7: 02/21/19 05:30 02/21/19 05:30 - ABG Interpretation ABG results: PT/INR, D-dimer PT 14.7 Seconds (9.4-12.1) H 02/16/19 05:30 - VTE Documentation of Mechanical Device: Graduated compression elastic hosiery Consult Discharge Plan - Plan Referrals: Nicolás Marshall DO [Primary Care Provider] -
[2019-02-22] MEDS: Latanoprost 2.5 ML BOTTLE BOTH EYES SCH (22:38)
[2019-02-23] MEDS: amLODIPine 5 MG TABLET GTUBE SCH (09:46)
[2019-02-23] MEDS: Multivit/Ca/Min/Fe/FA 1 TAB TABLET GTUBE SCH (09:46)
[2019-02-23] MEDS: FLUoxetine HCl Oral Soln 20 MG/5 ML UDC GTUBE SCH (09:46)
[2019-02-23] MEDS: hydrALAZINE 25 MG TABLET GTUBE SCH ×2 (09:46→16:30)
[2019-02-23] MEDS: Aspirin 81 MG TAB.CHEW GTUBE SCH (09:46)
--- NOTE | 2019-02-23 10:26 | Internal Med Progress Note ---
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 Patient continues with garbled speech and with what appears as receptive aphasia. Patient has been showing poor cooperation with therapy and does not follow commands during ADLs per nursing. No motor deficits noted on exam. We will continue with therapy and current plan of care. We will continue with a blood pressure goal of less than 160. Qualifiers: CVA mechanism: unspecified Qualified Code(s): I63.9 - Cerebral infarction, unspecified (2) BPH (benign prostatic hyperplasia) Current Visit: Yes Status: Chronic Assessment and plan: No acute issues during his stay here. We will continue to monitor patient's voiding. Qualifiers: Lower urinary tract symptom presence: unspecified whether lower urinary tract symptoms present Qualified Code(s): N40.0 - Benign prostatic hyperplasia without lower urinary tract symptoms (3) Hypertension Current Visit: Yes Status: Chronic Assessment and plan: No acute issues. We will continue to maintain a systolic blood pressure goal of less than 160. Patient did have 1 reading that showed systolic of 182. Will start patient on when necessary clonidine. Qualifiers: Hypertension type: essential hypertension Qualified Code(s): I10 - Essential (primary) hypertension (4) Delirium Current Visit: Yes Status: Acute Assessment and plan: Patient continues to have poor cooperation with staff during ADLs and therapy. Patient has been changed to a swing status. Nursing reports no behavior issues during the night. (5) Dysphagia Current Visit: Yes Status: Acute Assessment and plan: Patient continues with garbled speech. At times patient will have a one-word answers that will be clear. Patient continues with total nutritional intake per gastrostomy tube and remains nothing by mouth Qualifiers: Dysphagia type: unspecified Qualified Code(s): R13.10 - Dysphagia, unspecified - Time Spent With Patient less than 15 minutes - Subjective Interval history: Patient appears alert and is able to answer simple instant responses, but after the initial response his speech becomes garbled. Patient's therapy has been limited due to his inability to cooperate. Patient with difficulty on following directions, but has been noted to follow simple commands through demonstration. Today nursing reports no behavior issues through the night, but patient reportedly does not follow directions during ADL's. - Constitutional Vitals: Temp Pulse Resp BP Pulse Ox 99.5 F 76 14 115/56 96 02/23/19 08:35 02/23/19 08:35 02/23/19 08:35 02/23/19 08:35 02/23/19 08:35 General appearance: Present: cooperative, A&O X 1, no acute distress Exam: Patient responds to name and tracks with eyes. Patient's speech remains garbled but it is noted that patient is able to make a spontaneous response of 2-3 words that is clear. Patient was asked a question of how are you and he responded with I am doing fine, but afterwards his speech became very garbled with his verbal response. Patient noted to be able to follow simple commands with demonstration such as when testing his muscle strength on exam. Patient observed not following any commands during ADLs when nursing was bathing him. - Head Head exam: Present: atraumatic, normocephalic - Eye Eye exam: Present: PERRL, conjuntiva pink, sclera anicteric Pupils: Present: PERRL - Neck Neck exam general surgery: Present: supple, trachea midline. Absent: lymphadenopathy - Respiratory Respiratory exam: Present: CTAB. Absent: accessory muscle use, rales, rhonchi, wheezes - Cardiovascular Cardiovascular exam: Present: RRR, +S1, +S2. Absent: diastolic murmur, gallop, rubs, systolic murmur - GI/Abdominal GI/Abdominal exam: Present: normal bowel sounds, soft, no peritoneal signs. Absent: distended, tenderness - Extremities Exam Extremities exam: Present: warm, radial pulses palpable and symmetrical. Absent: calf tenderness, cyanotic, pedal edema - Neurological Exam Neurological exam: Present: CN II-XII intact, no focal deficits. Absent: pronater drift, facial droop, speech deficit Additional comments: Exam somewhat limited due to inability of patient to follow any commands. As stated above patient speech remains garbled but has episodes of clear speech during spontaneous quick responses. No focal motor or sensory deficits noted on exam. - Skin Skin exam: Present: dry, intact Internal Medicine: Result - Labs CBC & Chem 7: 02/21/19 05:30 02/21/19 05:30 - ABG Interpretation ABG results: PT/INR, D-dimer PT 14.7 Seconds (9.4-12.1) H 02/16/19 05:30 - VTE Documentation of Mechanical Device: Graduated compression elastic hosiery Consult Discharge Plan - Plan Referrals: Nicolás Marshall DO [Primary Care Provider] -
[2019-02-23] MEDS: Latanoprost 2.5 ML BOTTLE BOTH EYES SCH (21:33)
[2019-02-24] MEDS: amLODIPine 5 MG TABLET GTUBE SCH (08:57)
[2019-02-24] MEDS: hydrALAZINE 25 MG TABLET GTUBE SCH ×3 (08:57→16:50)
[2019-02-24] MEDS: FLUoxetine HCl Oral Soln 20 MG/5 ML UDC GTUBE SCH (08:57)
[2019-02-24] MEDS: Aspirin 81 MG TAB.CHEW GTUBE SCH (08:57)
[2019-02-24] MEDS: Multivit/Ca/Min/Fe/FA 1 TAB TABLET GTUBE SCH (08:57)
--- NOTE | 2019-02-24 09:44 | Internal Med Progress Note ---
Date of Encounter: 02/24/19 Time of Encounter: 09:41 - Assessment and plan (1) CVA (cerebral vascular accident) Current Visit: Yes Status: Acute Assessment and plan: Continue PT, OT and ST. Will follow progress. No new neurological deficits. Follow up with neurologist as scheduled. Qualifiers: CVA mechanism: unspecified Qualified Code(s): I63.9 - Cerebral infarction, unspecified (2) Hypertension Current Visit: Yes Status: Chronic Assessment and plan: Controlled with current medication. Monitor blood pressure. Qualifiers: Hypertension type: essential hypertension Qualified Code(s): I10 - Essential (primary) hypertension (3) BPH (benign prostatic hyperplasia) Current Visit: Yes Status: Chronic Assessment and plan: No new symptoms. Continue current medication. Qualifiers: Lower urinary tract symptom presence: unspecified whether lower urinary tract symptoms present Qualified Code(s): N40.0 - Benign prostatic hyperplasia without lower urinary tract symptoms (4) Dysphagia Current Visit: Yes Status: Acute Assessment and plan: Continue enternal feeds through G-tube. Qualifiers: Dysphagia type: unspecified Qualified Code(s): R13.10 - Dysphagia, unspecified - Time Spent With Patient less than 15 minutes - Subjective Interval history: lying in bed, apears comfortable, no acute distress, was able to answer a couple questions with 1 worded response. continue to provide rest and decrease stimuli. difficult to obtain full HPI. family meeting to be scheduled. cooperating with therapy. - Constitutional Vitals: Temp Pulse Resp BP Pulse Ox 98.6 F 69 18 113/55 96 02/24/19 07:19 02/24/19 07:19 02/24/19 07:19 02/24/19 07:19 02/24/19 07:19 General appearance: Present: cooperative, A&O X 1, no acute distress - Head Head exam: Present: atraumatic, normocephalic - Eye Eye exam: Present: PERRL, conjuntiva pink, sclera anicteric Pupils: Present: PERRL - Neck Neck exam general surgery: Present: supple, trachea midline. Absent: lymphadenopathy - Respiratory Respiratory exam: Present: CTAB. Absent: accessory muscle use, rales, rhonchi, wheezes - Cardiovascular Cardiovascular exam: Present: RRR, +S1, +S2. Absent: diastolic murmur, gallop, rubs, systolic murmur - GI/Abdominal GI/Abdominal exam: Present: normal bowel sounds, soft, no peritoneal signs. Absent: distended, tenderness - Extremities Exam Extremities exam: Present: warm, radial pulses palpable and symmetrical. Absent: calf tenderness, cyanotic, pedal edema - Neurological Exam Neurological exam: Present: CN II-XII intact, oriented X3, no focal deficits. Absent: pronater drift, facial droop, speech deficit - Skin Skin exam: Present: dry, intact Internal Medicine: Result - Labs CBC & Chem 7: 02/21/19 05:30 02/21/19 05:30 - ABG Interpretation ABG results: PT/INR, D-dimer PT 14.7 Seconds (9.4-12.1) H 02/16/19 05:30 - VTE Documentation of Mechanical Device: Graduated compression elastic hosiery Consult Discharge Plan - Plan Referrals: Nicolás Marshall DO [Primary Care Provider] -
[2019-02-24] MEDS: Latanoprost 2.5 ML BOTTLE BOTH EYES SCH (21:34)
[2019-02-25] MEDS: hydrALAZINE 25 MG TABLET GTUBE SCH ×3 (00:45→16:56)
[2019-02-25] MEDS: FLUoxetine HCl Oral Soln 20 MG/5 ML UDC GTUBE SCH (09:31)
[2019-02-25] MEDS: Multivit/Ca/Min/Fe/FA 1 TAB TABLET GTUBE SCH (09:31)
[2019-02-25] MEDS: Aspirin 81 MG TAB.CHEW GTUBE SCH (09:32)
[2019-02-25] MEDS: amLODIPine 5 MG TABLET GTUBE SCH (09:32)
--- NOTE | 2019-02-25 11:29 | Internal Med Progress Note ---
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 Patient continues with garbled speech and with what appears as receptive aphasia. Patient has been showing poor cooperation with therapy and does not follow commands during ADLs per nursing. No motor deficits noted on exam. Has showed some improvement with speech therapy. We will continue with therapy and current plan of care. We will continue with a blood pressure goal of less than 160. Qualifiers: CVA mechanism: unspecified Qualified Code(s): I63.9 - Cerebral infarction, unspecified (2) BPH (benign prostatic hyperplasia) Current Visit: Yes Status: Chronic Assessment and plan: No acute issues during his stay here. We will continue to monitor patient's voiding. Qualifiers: Lower urinary tract symptom presence: unspecified whether lower urinary tract symptoms present Qualified Code(s): N40.0 - Benign prostatic hyperplasia without lower urinary tract symptoms (3) Hypertension Current Visit: Yes Status: Chronic Assessment and plan: No acute issues. We will continue to maintain a systolic blood pressure goal of less than 160. Patient did have 1 reading that showed systolic of 182. Will start patient on when necessary clonidine. Qualifiers: Hypertension type: essential hypertension Qualified Code(s): I10 - Essential (primary) hypertension (4) Dysphagia Current Visit: Yes Status: Acute Assessment and plan: Patient continues with garbled speech. At times patient will have a one-word answers that will be clear. Speech therapy should reports patient had shown some improvement. Patient continues with total nutritional intake per gastrostomy tube and remains nothing by mouth Qualifiers: Dysphagia type: unspecified Qualified Code(s): R13.10 - Dysphagia, unspecified - Time Spent With Patient less than 15 minutes - Subjective Interval history: Patient appears alert and is able to answer simple instant responses, but after the initial response his speech becomes garbled. Patient's therapy has been limited due to his inability to cooperate and patient noted to have difficulty falling most directions during exam. Noted to follow some simple commands t hrough demonstration. Speech therapy has reported patient has had some improvement with swallow. Patient continues to receive his full nutrition through tube feedings - Constitutional Vitals: Temp Pulse Resp BP Pulse Ox 99.3 F 69 14 125/62 96 02/24/19 20:00 02/24/19 20:00 02/24/19 20:00 02/24/19 20:00 02/24/19 20:00 General appearance: Present: cooperative, A&O X 1, no acute distress Exam: Patient noted to be able to answer simple questions with one to 2 word answers appropriately but anything complexed shows no verbal response today. Patient's speech is mostly garbled. Patient unable to follow most directions, but continues to have some response to demonstration on following commands during exam - Head Head exam: Present: atraumatic, normocephalic - Eye Eye exam: Present: PERRL, conjuntiva pink, sclera anicteric Pupils: Present: PERRL - Neck Neck exam general surgery: Present: supple, trachea midline. Absent: lymphaden opathy - Respiratory Respiratory exam: Present: CTAB. Absent: accessory muscle use, rales, rhonchi, wheezes - Cardiovascular Cardiovascular exam: Present: RRR, +S1, +S2. Absent: diastolic murmur, gallop, rubs, systolic murmur - GI/Abdominal GI/Abdominal exam: Present: normal bowel sounds, soft, no peritoneal signs. Absent: distended, tenderness Additional comments: Gastrostomy tube in place with insertion site appearing healthy - Extremities Exam Extremities exam: Present: warm, radial pulses palpable and symmetrical. Absent: calf tenderness, cyanotic, pedal edema - Neurological Exam Neurological exam: Present: CN II-XII intact. Absent: pronater drift, facial droop, speech deficit Additional comments: Patient continues with moderate confusion. Continues to answer simple questions appropriately with one to 2 word answers but after initial response his speech becomes garbled. Today patient shows minimal attention span unless continuously stimulated. No focal motor deficits noted on exam - Skin Skin exam: Present: dry, intact Internal Medicine: Result - Labs CBC & Chem 7: 02/21/19 05:30 02/21/19 05:30 - ABG Interpretation ABG results: PT/INR, D-dimer PT 14.7 Seconds (9.4-12.1) H 02/16/19 05:30 - VTE Documentation of Mechanical Device: Graduated compression elastic hosiery Consult Discharge Plan - Plan Referrals: Nicolás Marshall DO [Primary Care Provider] -
[2019-02-25] MEDS: Latanoprost 2.5 ML BOTTLE BOTH EYES SCH (22:02)
[2019-02-26] MEDS: hydrALAZINE 25 MG TABLET GTUBE SCH ×3 (00:19→17:01)
[2019-02-26] MEDS: Aspirin 81 MG TAB.CHEW GTUBE SCH (09:51)
[2019-02-26] MEDS: amLODIPine 5 MG TABLET GTUBE SCH (09:51)
[2019-02-26] MEDS: Multivit/Ca/Min/Fe/FA 1 TAB TABLET GTUBE SCH (09:51)
[2019-02-26] MEDS: FLUoxetine HCl Oral Soln 20 MG/5 ML UDC GTUBE SCH (09:53)
--- NOTE | 2019-02-26 13:21 | Internal Med Progress Note ---
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 Patient continues with garbled speech and with what appears as receptive aphasia. Patient has been showing poor cooperation with therapy and does not follow commands during ADLs per nursing. No motor deficits noted on exam. Has showed some improvement with speech therapy. We will continue with therapy and current plan of care. We will continue with a blood pressure goal of less than 160. Qualifiers: CVA mechanism: unspecified Qualified Code(s): I63.9 - Cerebral infarction, unspecified (2) BPH (benign prostatic hyperplasia) Current Visit: Yes Status: Chronic Assessment and plan: No acute issues during his stay here. We will continue to monitor patient's voiding. Qualifiers: Lower urinary tract symptom presence: unspecified whether lower urinary tract symptoms present Qualified Code(s): N40.0 - Benign prostatic hyperplasia without lower urinary tract symptoms (3) Hypertension Current Visit: Yes Status: Chronic Assessment and plan: No acute issues. We will continue to maintain a systolic blood pressure goal of less than 160. Patient did have 1 reading that showed systolic of 182. Will start patient on when necessary clonidine. Qualifiers: Hypertension type: essential hypertension Qualified Code(s): I10 - Esse ntial (primary) hypertension (4) Dysphagia Current Visit: Yes Status: Acute Assessment and plan: Patient continues with garbled speech. At times patient will have a one-word answers that will be clear. Speech therapy should reports patient had shown some improvement. Patient continues with total nutritional intake per gastrostomy tube and remains nothing by mouth Qualifiers: Dysphagia type: unspecified Qualified Code(s): R13.10 - Dysphagia, unspecified - Time Spent With Patient less than 15 minutes - Subjective Interval history: Patient appears alert and is able to answer simple instant responses, but after the initial response his speech becomes slower and garbled. Patient's therapy has been limited due to his inability to cooperate and patient noted to have dif ficulty falling most directions during exam. Noted to follow some simple commands through demonstration. Speech therapy has reported patient has had some improvement with swallow. Patient continues to receive his full nutrition through tube feedings - EXAM General appearance: Present: cooperative, A&O X 1, no acute distress Exam: Patient noted to be able to answer simple questions with one to 2 word answers appropriately but anything complexed shows no verbal response today. Patient's speech is mostly garbled. Patient unable to follow most directions, but continues to have some response to demonstration on following commands during exam - Head Head exam: Present: atraumatic, normocephalic - Eye Eye exam: Present: PERRL, conjuntiva pink, sclera anicteric Pupils: Present: PERRL - Neck Neck exam general surgery: Present: supple, trachea midline. Absent: lymphadenopathy - Respiratory Respiratory exam: Present: CTAB. Absent: accessory muscle use, rales, rhonchi, wheezes - Cardiovascular Cardiovascular exam: Present: RRR, +S1, +S2. Absent: diastolic murmur, gallop, rubs, systolic murmur - GI/Abdominal GI/Abdominal exam: Present: normal bowel sounds, soft, no peritoneal signs. Absent: distended, tenderness Additional comments: Gastrostomy tube in place with insertion site appearing healthy - Extremities Exam Extremities exam: Present: warm, radial pulses palpable and symmetrical. Absent: calf tenderness, cyanotic, pedal edema - Neurological Exam Neurological exam: Present: CN II-XII intact. Absent: pronater drift, facial droop, speech deficit Additional comments: Patient continues with moderate confusion. Continues to answer simple questions appropriately with one to 2 word answers but after initial response his speech becomes garbled. Today patient shows minimal attention span unless continuously stimulated. No focal motor deficits noted on exam - Skin Skin exam: Present: dry, intact - Constitutional Vitals: Temp Pulse Resp BP Pulse Ox 99.0 F 69 14 117/63 95 02/26/19 08:57 02/26/19 08:57 02/26/19 08:57 02/26/19 08:57 02/26/19 08:57 General appearance: Present: cooperative, A&O X 1, no acute distress Internal Medicine: Result - Labs CBC & Chem 7: 02/28/19 05:05 02/28/19 05:05 - ABG Interpretation ABG results: PT/INR, D-dimer PT 14.7 Seconds (9.4-12.1) H 02/16/19 05:30 - VTE Documentation of Mechanical Device: Graduated compression elastic hosiery Consult Discharge Plan - Plan Referrals: Nicolás Marshall DO [Primary Care Provider] -
[2019-02-26] MEDS: Latanoprost 2.5 ML BOTTLE BOTH EYES SCH (22:49)
[2019-02-27] MEDS: hydrALAZINE 25 MG TABLET GTUBE SCH ×4 (01:15→23:53)
[2019-02-27] MEDS: Multivit/Ca/Min/Fe/FA 1 TAB TABLET GTUBE SCH (08:40)
[2019-02-27] MEDS: Aspirin 81 MG TAB.CHEW GTUBE SCH (08:40)
[2019-02-27] MEDS: FLUoxetine HCl Oral Soln 20 MG/5 ML UDC GTUBE SCH (08:41)
[2019-02-27] MEDS: amLODIPine 5 MG TABLET GTUBE SCH (08:41)
[2019-02-27] MEDS: Latanoprost 2.5 ML BOTTLE BOTH EYES SCH (23:03)
[2019-02-28 06:02] LABS: Basophils % 0.3 %; Eosinophils # 0.2 K/mcL (0.0-0.6); Eosinophils % 1.6 %; Hematocrit 31.7 % (37.5-50.1); Hemoglobin 10.5 g/dL (12.9-16.9); Immature Granulocytes % 0.6 % (0-4); Lymphocytes # 2.4 K/mcL (0.6-4.6); Lymphocytes % 23.8 %; Mean Corpuscular HGB Conc 33.1 g/dL (31.6-35.5); Mean Corpuscular Hemoglobin 32.8 pg (28.0-33.3); Mean Corpuscular Volume 99.1 fL (83.0-100.0); Mean Platelet Volume 11.5 fL (9.4-12.4); Monocytes % 9.5 %; Neutrophils # 6.6 K/mcL (1.6-8.9); Platelet Count 241 K/mcL (140-400); Red Cell Distribution Width 13.6 % (11.5-14.5); Segmented Neutrophils % 64.2 %; White Blood Count 10.2 K/mcL (4.3-11.1)
[2019-02-28 06:11] LABS: Alanine Aminotransferase 85 Units/L (7-52); Albumin 2.9 g/dL (3.5-5.7); Alkaline Phosphatase 290 Units/L (34-104); Aspartate Amino Transferase 62 Units/L (13-39); BUN/Creatinine Ratio 31 (6-26); Bilirubin,Total 0.7 mg/dL (0.3-1.0); Blood Urea Nitrogen 20 mg/dL (8-23); Calcium 8.3 mg/dL (8.6-10.3); Carbon Dioxide 28 mEq/L (23-29); Chloride 98 mEq/L (98-107); Glucose 203 mg/dL (70-105); Osmolality,Calculated 280 (280-300); Potassium 4.3 mEq/L (3.5-5.1); Sodium 131 mEq/L (136-145); Total Protein 5.9 g/dL (6.4-8.9); eGFR For African Americans > 60 (> 60); eGFR For Non-African Americans > 60 (> 60)
[2019-02-28] MEDS: FLUoxetine HCl Oral Soln 20 MG/5 ML UDC GTUBE SCH (07:38)
[2019-02-28] MEDS: Multivit/Ca/Min/Fe/FA 1 TAB TABLET GTUBE SCH (07:38)
[2019-02-28] MEDS: amLODIPine 5 MG TABLET GTUBE SCH (07:39)
[2019-02-28] MEDS: Aspirin 81 MG TAB.CHEW GTUBE SCH (07:39)
[2019-02-28] MEDS: hydrALAZINE 25 MG TABLET GTUBE SCH ×2 (07:39→16:17)
[2019-02-28 10:03] LABS: Bilirubin,Urine Negative (Negative); Blood,Urine Negative (Negative); Clarity,Urine Clear (Clear); Color,Urine Yellow (Yellow); Glucose,Urine (UA) Normal (Normal); Ketones,Urine Negative (Negative); Leukocyte Esterase,Urine Negative (Negative); Nitrite,Urine Negative (Negative); Protein,Urine 30 mg/dL (Neg-Trace); Specific Gravity,Urine 1.015 (1.010-1.025); Urobilinogen,Urine Normal (Normal)
--- NOTE | 2019-02-28 10:08 | Internal Med Progress Note ---
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 Patient continues with garbled speech and with what appears as receptive aphasia. Patient has been showing poor cooperation with therapy and does not follow commands during ADLs per nursing. No motor deficits noted on exam. Has showed some improvement with speech therapy. Patient has experienced increased drowsiness over the past 2 days, but no acute neurological changes noted on his exam. Patient's had a slight increase in his WBCs are 10.3 and has had a low-grade fever over the past 2 days. We will send urine for urinalysis and obtain chest x-ray. We will continue with therapy and current plan of care. We will continue with a blood pressure goal of less than 160. Qualifiers: CVA mechanism: unspecified Qualified Code(s): I63.9 - Cerebral infarction, unspecified (2) BPH (benign prostatic hyperplasia) Current Visit: Yes Status: Chronic Assessment and plan: No acute issues during his stay here. We will continue to monitor patient's voiding. Qualifiers: Lower urinary tract symptom presence: unspecified whether lower urinary tract symptoms present Qualified Code(s): N40.0 - Benign prostatic hyperplasia without lower urinary tract symptoms (3) Hypertension Current Visit: Yes Status: Chronic Assessment and plan: No acute issues. We will continue to maintain a systolic blood pressure goal of less than 160. Will start patient on when necessary clonidine. Qualifiers: Hypertension type: essential hypertension Qualified Code(s): I10 - Essential (primary) hypertension (4) Dysphagia Current Visit: Yes Status: Acute Assessment and plan: Patient continues with garbled speech. At times patient will have a one-word answers that will be clear. Speech therapy should reports patient had shown some improvement. Patient continues with total nutritional intake per gastrostomy tube and remains nothing by mouth Qualifiers: Dysphagia type: unspecified Qualified Code(s): R13.10 - Dysphagia, unspecified - Time Spent With Patient less than 15 minutes - Subjective Interval history: Patient appears drowsy, but easily awakened and able to answer simple instant responses. After the initial response his speech becomes garbled. Patient's therapy remains limited due to his inability to cooperate and patient noted to have difficulty falling most directions during exam. Noted to follow some simple commands through demonstration. Speech therapy has reported patient has had some improvement with swallow. Patient continues to receive his full nutrition through tube feedings - Constitutional Vitals: Temp Pulse Resp BP Pulse Ox 100.7 F H 85 18 166/69 95 02/28/19 07:29 02/28/19 07:16 02/28/19 07:16 02/28/19 07:16 02/28/19 07:16 General appearance: Present: cooperative, A&O X 1, no acute distress Exam: Patient with clear short answers to simple questions, but garbled full sentences. Follows simple demonstrations for simple commands, but only does verbal simple commands intermittently. - Head Head exam: Present: atraumatic, normocephalic - Eye Eye exam: Present: PERRL, conjuntiva pink, sclera anicteric Pupils: Present: PERRL - Neck Neck exam general surgery: Present: supple, trachea midline. Absent: lymphadenopathy - Respiratory Respiratory exam: Present: CTAB. Absent: accessory muscle use, rales, rhonchi, wheezes - Cardiovascular Cardiovascular exam: Present: RRR, +S1, +S2. Absent: diastolic murmur, gallop, rubs, systolic murmur - GI/Abdominal GI/Abdominal exam: Present: normal bowel sounds, soft, no peritoneal signs. Absent: distended, tenderness - Extremities Exam Extremities exam: Present: warm, radial pulses palpable and symmetrical. Absent: calf tenderness, cyanotic, pedal edema - Neurological Exam Neurological exam: Present: no focal deficits, speech deficit. Absent: pronater drift, facial droop Additional comments: Patient continues to have garbled speech but over the past week he is noted to have clear speech with spontaneous answers to simple questions. Patient speaks in full sentences speech becomes garbled. Patient noted to have increased drowsiness over the past 2 days. No focal motor deficits noted on exam. - Skin Skin exam: Present: dry, intact Internal Medicine: Result - Labs CBC & Chem 7: 02/28/19 05:05 02/28/19 05:05 Labs: Short CBC 02/28/19 Range/Units 05:05 WBC 10.2 D (4.3-11.1) K/mcL Hgb 10.5 L (12.9-16.9) g/dL Hct 31.7 L (37.5-50.1) % Plt Count 241 D (140-400) K/mcL Neutrophils # 6.6 (1.6-8.9) K/mcL BMP 02/28/19 05:05 Sodium 131 L Potassium 4.3 Chloride 98 Carbon Dioxide 28 BUN 20 Creatinine 0.65 L Glucose 203 H Calcium 8.3 L Liver Function 02/28/19 Range/Units 05:05 Total Bilirubin 0.7 (0.3-1.0) mg/dL AST 62 H (13-39) Units/L ALT 85 H (7-52) Units/L Alkaline Phosphatase 290 H (34-104) Units/L Albumin 2.9 L (3.5-5.7) g/dL - ABG Interpretation ABG results: PT/INR, D-dimer PT 14.7 Seconds (9.4-12.1) H 02/16/19 05:30 - Impressions Impressions Chest X-Ray 02/28/19 08:55 IMPRESSION: Left basilar airspace opacity obscuring the left hemidiaphragm suspicious for pneumonia. D/ / Kayla Reis MD / Kayla Reis MD Interpreting Provider: Kayla Reis MD - VTE Documentation of Mechanical Device: Graduated compression elastic hosiery Consult Discharge Plan - Plan Referrals: Nicolás Marshall DO [Primary Care Provider] -
[2019-02-28 10:20] LABS: Amorphous Sediment,Urine Few (Few); Squamous Epithelial Cell,Urine Few per lpf (None-Few); WBC,Urine 0-3 per hpf (0-3)
[2019-02-28 10:21] LABS: Bacteria,Urine Few per hpf (None-Few)
[2019-02-28] MEDS: levoFLOXacin 500 MG/100 ML 500 MG/100 ML BAG IVPB SCH (11:42)
--- NOTE | 2019-02-28 16:02 | Internal Med Progress Note ---
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 Patient continues with garbled speech and with what appears as receptive aphasia. Patient has been showing poor cooperation with therapy and does not follow commands during ADLs per nursing. No motor deficits noted on exam. Has showed some improvement with speech therapy. We will continue with therapy and current plan of care. We will continue with a blood pressure goal of less than 160. Qualifiers: CVA mechanism: unspecified Qualified Code(s): I63.9 - Cerebral infarction, unspecified (2) BPH (benign prostatic hyperplasia) Current Visit: Yes Status: Chronic Assessment and plan: No acute issues during his stay here. We will continue to monitor patient's voiding. Qualifiers: Lower urinary tract symptom presence: unspecified whether lower urinary tract symptoms present Qualified Code(s): N40.0 - Benign prostatic hyperplasia without lower urinary tract symptoms (3) Hypertension Current Visit: Yes Status: Chronic Assessment and plan: No acute issues. We will continue to maintain a systolic blood pressure goal of less than 160. Patient did have 1 reading that showed systolic of 182. Will start patient on when necessary clonidine. Qualifiers: Hypertension type: essential hypertension Qualified Code(s): I10 - Esse ntial (primary) hypertension (4) Dysphagia Current Visit: Yes Status: Acute Assessment and plan: Patient continues with garbled speech. At times patient will have a one-word answers that will be clear. Speech therapy should reports patient had shown some improvement. Patient continues with total nutritional intake per gastrostomy tube and remains nothing by mouth Qualifiers: Dysphagia type: unspecified Qualified Code(s): R13.10 - Dysphagia, unspecified - Time Spent With Patient less than 15 minutes - Subjective Interval history: Patient appears alert and is able to answer simple instant responses, but after the initial response his speech becomes slower and garbled. Patient's therapy has been limited due to his inability to cooperate and patient noted to have dif ficulty falling most directions during exam. Noted to follow some simple commands through demonstration. Speech therapy has reported patient has had some improvement with swallow. Patient continues to receive his full nutrition through tube feedings - EXAM General appearance: Present: cooperative, A&O X 1, no acute distress Exam: Patient noted to be still sometimes confused. Patient unable to follow most directions, but continues to have some response to demonstration on following commands during exam - Head Head exam: Present: atraumatic, normocephalic - Eye Eye exam: Present: PERRL, conjuntiva pink, sclera anicteric Pupils: Present: PERRL - Neck Neck exam general surgery: Present: supple, trachea midline. Absent: lymphadenopathy - Respiratory Respiratory exam: Present: CTAB. Absent: accessory muscle use, rales, rhonchi, wheezes - Cardiovascular Cardiovascular exam: Present: RRR, +S1, +S2. Absent: diastolic murmur, gallop, rubs, systolic murmur - GI/Abdominal GI/Abdominal exam: Present: normal bowel sounds, soft, no peritoneal signs. Absent: distended, tenderness Additional comments: Gastrostomy tube in place with insertion site appearing healthy - Extremities Exam Extremities exam: Present: warm, radial pulses palpable and symmetrical. Absent: calf tenderness, cyanotic, pedal edema - Neurological Exam Neurological exam: Present: CN II-XII intact. Absent: pronater drift, facial droop, speech deficit Additional comments: Patient continues with moderate confusion. Continues to answer simple questions appropriately with one to 2 word answers but after initial response his speech becomes garbled. Today patient shows minimal attention span unless continuously stimulated. No focal motor deficits noted on exam - Skin Skin exam: Present: dry, intact - Constitutional Vitals: Temp Pulse Resp BP Pulse Ox 98.5 F 78 18 107/58 95 02/28/19 11:51 02/28/19 11:51 02/28/19 11:51 02/28/19 11:51 02/28/19 11:51 General appearance: Present: cooperative, A&O X 1, no acute distress Internal Medicine: Result - Labs CBC & Chem 7: 02/28/19 05:05 02/28/19 05:05 Labs: Short CBC 02/28/19 Range/Units 05:05 WBC 10.2 D (4.3-11.1) K/mcL Hgb 10.5 L (12.9-16.9) g/dL Hct 31.7 L (37.5-50.1) % Plt Count 241 D (140-400) K/mcL Neutrophils # 6.6 (1.6-8.9) K/mcL BMP 02/28/19 05:05 Sodium 131 L Potassium 4.3 Chloride 98 Carbon Dioxide 28 BUN 20 Creatinine 0.65 L Glucose 203 H Calcium 8.3 L Liver Function 02/28/19 Range/Units 05:05 Total Bilirubin 0.7 (0.3-1.0) mg/dL AST 62 H (13-39) Units/L ALT 85 H (7-52) Units/L Alkaline Phosphatase 290 H (34-104) Units/L Albumin 2.9 L (3.5-5.7) g/dL Urine 02/28/19 Range/Units 09:50 Urine Color Yellow (Yellow) Urine Clarity Clear (Clear) Urine pH 7.0 (5.0-8.0) pH Units Ur Specific [place] 1.015 (1.010-1.025) Urine Protein 30 H (Neg-Trace) mg/dL Urine Glucose (UA) Normal (Normal) mg/dL - ABG Interpretation ABG results: PT/INR, D-dimer PT 14.7 Seconds (9.4-12.1) H 02/16/19 05:30 - Impressions Impressions Chest X-Ray 02/28/19 08:55 IMPRESSION: Left basilar airspace opacity obscuring the left hemidiaphragm suspicious for pneumonia. D/ / Kayla Reis MD / Kayla Reis MD Interpreting Provider: Kayla Reis MD - VTE Documentation of Mechanical Device: Graduated compression elastic hosiery Consult Discharge Plan - Plan Referrals: Nicolás Marshall DO [Primary Care Provider] -
[2019-02-28] MEDS: Latanoprost 2.5 ML BOTTLE BOTH EYES SCH (22:47)
[2019-03-01] MEDS: hydrALAZINE 25 MG TABLET GTUBE SCH ×4 (02:50→23:08)
[2019-03-01] MEDS: amLODIPine 5 MG TABLET GTUBE SCH (07:52)
[2019-03-01] MEDS: Aspirin 81 MG TAB.CHEW GTUBE SCH (07:52)
[2019-03-01] MEDS: Multivit/Ca/Min/Fe/FA 1 TAB TABLET GTUBE SCH (07:52)
[2019-03-01] MEDS: FLUoxetine HCl Oral Soln 20 MG/5 ML UDC GTUBE SCH (07:52)
--- NOTE | 2019-03-01 09:04 | Internal Med Progress Note ---
Date of Encounter: 03/01/19 Time of Encounter: 09:02 - Assessment and plan (1) CVA (cerebral vascular accident) Current Visit: Yes Status: Acute Assessment and plan: Continue PT, OT and ST. Will follow progress. No new neurological deficits. Follow up with neurologist as scheduled. Qualifiers: CVA mechanism: unspecified Qualified Code(s): I63.9 - Cerebral infarction, unspecified (2) Hypertension Current Visit: Yes Status: Chronic Assessment and plan: Controlled with current medication. Monitor blood pressure. Qualifiers: Hypertension type: essential hypertension Qualified Code(s): I10 - Essential (primary) hypertension (3) BPH (benign prostatic hyperplasia) Current Visit: Yes Status: Chronic Assessment and plan: No new symptoms. Continue current medication. Qualifiers: Lower urinary tract symptom presence: unspecified whether lower urinary tract symptoms present Qualified Code(s): N40.0 - Benign prostatic hyperplasia without lower urinary tract symptoms (4) Dysphagia Current Visit: Yes Status: Acute Assessment and plan: Continue enternal feeds through G-tube. Qualifiers: Dysphagia type: unspecified Qualified Code(s): R13.10 - Dysphagia, unspecified (5) Pneumonia Current Visit: Yes Status: Acute Assessment and plan: Stable. Continue Levaquin. Monitor for improvement. Qualifiers: Pneumonia type: due to unspecified organism Laterality: left Lung location: lower lobe of lung Qualified Code(s): J18.1 - Lobar pneumonia, unspecified organism - Time Spent With Patient less than 15 minutes - Subjective Interval history: lying in bed, apears comfortable, no acute distress. continue to provide rest and decrease stimuli. difficult to obtain full HPI. family meeting 03/04. cooperating with therapy. Nursing staff states that patient has been grimacing with right shoulder movement. Tylenol relieves for pain. Will monitor throughout the day. Was started on Levaquin IV for pneumonia. Patient is afebrile this morning. - Constitutional Vitals: Temp Pulse Resp BP Pulse Ox 99.6 F 75 15 144/68 97 03/01/19 08:03 03/01/19 08:03 03/01/19 08:03 03/01/19 08:03 03/01/19 08:03 General appearance: Present: cooperative, A&O X 1, no acute distress - Head Head exam: Present: atraumatic, normocephalic - Eye Eye exam: Present: PERRL, conjuntiva pink, sclera anicteric Pupils: Present: PERRL - Neck Neck exam general surgery: Present: supple, trachea midline. Absent: lymphadenopathy - Respiratory Respiratory exam: Present: CTAB. Absent: accessory muscle use, rales, rhonchi, wheezes - Cardiovascular Cardiovascular exam: Present: RRR, +S1, +S2. Absent: diastolic murmur, gallop, rubs, systolic murmur - GI/Abdominal GI/Abdominal exam: Present: normal bowel sounds, soft, no peritoneal signs. Absent: distended, tenderness - Extremities Exam Extremities exam: Present: warm, radial pulses palpable and symmetrical. Abse nt: calf tenderness, cyanotic, pedal edema - Neurological Exam Neurological exam: Present: CN II-XII intact, oriented X3, no focal deficits. Absent: pronater drift, facial droop, speech deficit - Skin Skin exam: Present: dry, intact Additional comments: IV right hand, no sign of infection Internal Medicine: Result - Labs CBC & Chem 7: 02/28/19 05:05 02/28/19 05:05 Labs: Urine 02/28/19 Range/Units 09:50 Urine Color Yellow (Yellow) Urine Clarity Clear (Clear) Urine pH 7.0 (5.0-8.0) pH Units Ur Specific [place] 1.015 (1.010-1.025) Urine Protein 30 H (Neg-Trace) mg/dL Urine Glucose (UA) Normal (Normal) mg/dL - ABG Interpretation ABG results: PT/INR, D-dimer PT 14.7 Seconds (9.4-12.1) H 02/16/19 05:30 - Impressions Impressions Chest X-Ray 02/28/19 08:55 IMPRESSION: Left basilar airspace opacity obscuring the left hemidiaphragm suspicious for pneumonia. D/ / Kayla Reis MD / Kayla Reis MD Interpreting Provider: Kayla Reis MD - VTE Documentation of Mechanical Device: Graduated compression elastic hosiery Consult Discharge Plan - Plan Referrals: Nicolás Marshall DO [Primary Care Provider] -
[2019-03-01] MEDS: levoFLOXacin 500 MG/100 ML 500 MG/100 ML BAG IVPB SCH (11:48)
[2019-03-01] MEDS: Latanoprost 2.5 ML BOTTLE BOTH EYES SCH (23:08)
[2019-03-02] MEDS: Multivit/Ca/Min/Fe/FA 1 TAB TABLET GTUBE SCH (07:48)
[2019-03-02] MEDS: Aspirin 81 MG TAB.CHEW GTUBE SCH (07:48)
[2019-03-02] MEDS: amLODIPine 5 MG TABLET GTUBE SCH (07:48)
[2019-03-02] MEDS: hydrALAZINE 25 MG TABLET GTUBE SCH ×2 (07:48→16:45)
[2019-03-02] MEDS: FLUoxetine HCl Oral Soln 20 MG/5 ML UDC GTUBE SCH (07:48)
[2019-03-02] MEDS: levoFLOXacin 500 MG/100 ML 500 MG/100 ML BAG IVPB SCH (12:36)
--- NOTE | 2019-03-02 13:02 | Internal Med Progress Note ---
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 Patient continues with garbled speech and with what appears as receptive aphasia. Patient has been showing poor cooperation with therapy and does not follow commands during ADLs per nursing. No motor deficits noted on exam. Has showed some improvement with speech therapy. We will continue with therapy and current plan of care. We will continue with a blood pressure goal of less than 160. Qualifiers: CVA mechanism: unspecified Qualified Code(s): I63.9 - Cerebral infarction, unspecified (2) BPH (benign prostatic hyperplasia) Current Visit: Yes Status: Chronic Assessment and plan: No acute issues during his stay here. We will continue to monitor patient's voiding. Qualifiers: Lower urinary tract symptom presence: unspecified whether lower urinary tract symptoms present Qualified Code(s): N40.0 - Benign prostatic hyperplasia without lower urinary tract symptoms (3) Hypertension Current Visit: Yes Status: Chronic Assessment and plan: No acute issues. We will continue to maintain a systolic blood pressure goal of less than 160. Will start patient on when necessary clonidine. Qualifiers: Hypertension type: essential hypertension Qualified Code(s): I10 - Essential (primary) hypertension (4) Dysphagia Current Visit: Yes Status: Acute Assessment and plan: Patient continues with garbled speech. At times patient will have a one-word answers that will be clear. Speech therapy should reports patient had shown some improvement. Patient continues with total nutritional intake per gastrosto my tube and remains nothing by mouth Qualifiers: Dysphagia type: unspecified Qualified Code(s): R13.10 - Dysphagia, unspecified (5) Pneumonia Current Visit: Yes Status: Acute Assessment and plan: Patient had been diagnosed with a left lower left lobe pneumonia. Patient continues on Levaquin at this time. Remains afebrile. No productive cough noted or dyspnea. We will continue with current plan of care Qualifiers: Pneumonia type: due to unspecified organism Laterality: left Lung location: lower lobe of lung Qualified Code(s): J18.1 - Lobar pneumonia, unspecified organism - Subjective Interval history: Patient appears drowsy, but easily awakened and able to answer simple instant responses. After the initial response his speech becomes garbled. Patient's therapy remains limited due to his inability to cooperate and patient noted to have difficulty falling most directions during exam. Noted to follow some simple commands through demonstration. Speech therapy has reported patient has had some improvement with swallow. Patient continues to receive his full nutrition through tube feedings - Constitutional Vitals: Temp Pulse Resp BP Pulse Ox 98.0 F 75 18 148/66 95 03/02/19 07:22 03/02/19 07:22 03/02/19 07:22 03/02/19 07:22 03/02/19 07:22 General appearance: Present: cooperative, A&O X 1, no acute distress Exam: Patient response to name and is able to answer simple questions with one to 2 word answers spontaneously. Patient with garbled speech with or complex sentencing attempts. Patient noted to be able to follow simple commands by demonstration on occasion. - Head Head exam: Present: atraumatic, normocephalic - Eye Eye exam: Present: PERRL, conjuntiva pink, sclera anicteric Pupils: Present: PERRL - Neck Neck exam general surgery: Present: supple, trachea midline. Absent: lymphadenopathy - Respiratory Respiratory exam: Present: decreased breath sounds, CTAB. Absent: accessory muscle use, rales, rhonchi, wheezes - Cardiovascular Cardiovascular exam: Present: RRR, +S1, +S2. Absent: diastolic murmur, gallop, rubs, systolic murmur - GI/Abdominal GI/Abdominal exam: Present: normal bowel sounds, soft, no peritoneal signs. Absent: distended, tenderness Additional comments: Gastrostomy tube insertion site appears healthy outside. Patient continues with tube feedings for total nutrition - Extremities Exam Extremities exam: Present: warm, radial pulses palpable and symmetrical. Absent: calf tenderness, cyanotic, pedal edema - Neurological Exam Neurological exam: Present: CN II-XII intact, oriented X3, speech deficit. Absent: pronater drift, facial droop Additional comments: Neurological exam is limited due to patient's poor cooperation. Patient continues to have dysarthria with speech when attempting complex sentencing. Patient noted to have clear words when short 1-2 word spontaneous answers to simple questions. Patient also noted to follow simple commands after home by demonstration. No motor deficits noted on exam. - Skin Skin exam: Present: dry, intact Internal Medicine: Result - Labs CBC & Chem 7: 02/28/19 05:05 02/28/19 05:05 - ABG Interpretation ABG results: PT/INR, D-dimer PT 14.7 Seconds (9.4-12.1) H 02/16/19 05:30 - VTE Documentation of Mechanical Device: Graduated compression elastic hosiery Consult Discharge Plan - Plan Referrals: Nicolás aMrshall DO [Primary Care Provider] -
--- NOTE | 2019-03-02 14:26 | Rehab Psychology Progress Note ---
Date of Encounter: 03/02/19 Time of Encounter: 10:00 Subjective - Patient Report Patient Report: In bed and not responsive. Occassionally has automatic type replies. 's name, etc. Spent session discussing with background information on Charlee. He was currently working at [employer], a position he started 07/2018. He had retired 3X but consistently returned to work. He is literal/logical in his presentation per his . She was the one with illnesses at times unable to get out of bed. He cared for and supported his , son and grandson - all in the home. They have been 56 years. She is concerned with all the changes that will be occurring in the family due to Charlee's illness. They have 3 adult sons and they need to understand the changes - physical and financial. Discussed concerns about need for 24 hour care thus upon DC will he go home and can they manage or to an ECF. SHe is holding out the 1 year jere for gains/progress. Discussed the MRI and brain damage. Objective - WHODAS Functional Impairment Concentration, Problem-solving, Communication: Extreme Social Functioning: Extreme - Comments Functional Status Comments: Dependent and reactive/spontaneous responses - Mental Status Mental Status Changes: OX0 Assessment and Plan - Response to Treatment Response to Treatment: No Change - Treatment Plan Treatment Plan Recommendations: Change Treatment Plan/Goals Changes in Treatment Plan Goals: Support family in decision process and understanding the sigmificant impairments/disabilities from the CVA. Next Session Date: 03/09/19 Procedures - Intervention Interventions: Cognitive/Behavioral Therapy - Modality Modality: Psychotherapy 30 minutes - Participants Therapy Participant: Patient, Family - Session Time Session Start Time: 10:00 Session Stop Time: 10:30
[2019-03-02] MEDS: Latanoprost 2.5 ML BOTTLE BOTH EYES SCH (21:58)
[2019-03-03] MEDS: hydrALAZINE 25 MG TABLET GTUBE SCH ×4 (00:40→23:54)
[2019-03-03] MEDS: Multivit/Ca/Min/Fe/FA 1 TAB TABLET GTUBE SCH (10:16)
[2019-03-03] MEDS: Aspirin 81 MG TAB.CHEW GTUBE SCH (10:16)
[2019-03-03] MEDS: FLUoxetine HCl Oral Soln 20 MG/5 ML UDC GTUBE SCH (10:16)
[2019-03-03] MEDS: amLODIPine 5 MG TABLET GTUBE SCH (10:16)
[2019-03-03] MEDS: levoFLOXacin 500 MG/100 ML 500 MG/100 ML BAG IVPB SCH (10:17)
--- NOTE | 2019-03-03 11:26 | Internal Med Progress Note ---
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 Patient continues with garbled speech during complex sentence structure. Patient continues to show poor cooperation with therapy and does not follow commands during ADLs per nursing. No motor deficits noted on exam. Has showed some improvement with speech therapy. We will continue with therapy and current plan of care. We will continue with a blood pressure goal of less than 160. Qualifiers: CVA mechanism: unspecified Qualified Code(s): I63.9 - Cerebral infarction, unspecified (2) BPH (benign prostatic hyperplasia) Current Visit: Yes Status: Chronic Assessment and plan: No acute issues during his stay here. We will continue to monitor patient's voiding. Qualifiers: Lower urinary tract symptom presence: unspecified whether lower urinary tract symptoms present Qualified Code(s): N40.0 - Benign prostatic hyperplasia without lower urinary tract symptoms (3) Hypertension Current Visit: Yes Status: Chronic Assessment and plan: No acute issues. We will continue to maintain a systolic blood pressure goal of less than 160. Will start patient on when necessary clonidine. Qualifiers: Hypertension type: essential hypertension Qualified Code(s): I10 - Essential (primary) hypertension (4) Dysphagia Current Visit: Yes Status: Acute Assessment and plan: Patient continues with garbled speech. At times patient will have a one-word answers that will be clear. Speech therapy should reports patient had shown some improvement. Patient continues with total nutritional intake per gastrostomy tube and remains nothing by mouth. Patient currently is going to receive his tube feeding infusion during the night and per speech therapy will attempt advancing his speech therapy during the day. Qualifiers: Dysphagia type: unspecified Qualified Code(s): R13.10 - Dysphagia, unspecified (5) Pneumonia Current Visit: Yes Status: Acute Assessment and plan: Patient had been diagnosed with a left lower left lobe pneumonia. Patient continues on Levaquin at this time. Remains afebrile. No productive cough noted or dyspnea. We will continue with current plan of care Qualifiers: Pneumonia type: due to unspecified organism Laterality: left Lung location: lower lobe of lung Qualified Code(s): J18.1 - Lobar pneumonia, unspecified organism - Time Spent With Patient less than 15 minutes - Subjective Interval history: Patient appears drowsy, but easily awakened and able to answer simple instant responses. After the initial response his speech becomes garbled. Patient's therapy remains limited due to his inability to cooperate and patient noted to have difficulty falling most directions during exam. Noted to follow some simple commands through demonstration. Speech therapy has reported patient has had some improvement with swallow. Patient continues to receive his full nutrition through tube feedings - Constitutional Vitals: Temp Pulse Resp BP Pulse Ox 99.8 F H 81 16 133/65 97 03/03/19 07:55 03/03/19 07:55 03/03/19 07:55 03/03/19 07:55 03/03/19 07:55 General appearance: Present: cooperative, A&O X 1, no acute distress Exam: Patient continues with clear speech during his spontaneous 1-2 word responses to simple questions. When attempting complex sentences patient's speech becomes garbled. Patient able to follow commands intermittently. - Head Head exam: Present: atraumatic, normocephalic - Eye Eye exam: Present: PERRL, conjuntiva pink, sclera anicteric Pupils: Present: PERRL - Neck Neck exam general surgery: Present: supple, trachea midline. Absent: lymphadenopathy - Respiratory Respiratory exam: Present: decreased breath sounds, CTAB. Absent: accessory muscle use, rales, rhonchi, wheezes - Cardiovascular Cardiovascular exam: Present: RRR, +S1, +S2. Absent: diastolic murmur, gallop, rubs, systolic murmur - GI/Abdominal GI/Abdominal exam: Present: normal bowel sounds, soft, no peritoneal signs. Absent: distended, tenderness Additional comments: Gastrostomy tube with insertion site appearing healthy. - Extremities Exam Extremities exam: Present: warm, radial pulses palpable and symmetrical. Absent: calf tenderness, cyanotic, pedal edema - Neurological Exam Neurological exam: Present: CN II-XII intact, oriented X3, speech deficit. Absent: pronater drift, facial droop Additional comments: Patient continues to have clear one to 2 word answers to simple questions but his speech becomes garbled with complex sentencing. Patient continues to have a very poor attention span, but cannot follow simple commands when continuously stimulated. No focal motor deficits noted on exam - Skin Skin exam: Present: dry, intact Internal Medicine: Result - Labs CBC & Chem 7: 02/28/19 05:05 02/28/19 05:05 - ABG Interpretation ABG results: PT/INR, D-dimer PT 14.7 Seconds (9.4-12.1) H 02/16/19 05:30 - VTE Documentation of Mechanical Device: Graduated compression elastic hosiery Consult Discharge Plan - Plan Referrals: Nicolás Marshall DO [Primary Care Provider] -
[2019-03-03] MEDS: Latanoprost 2.5 ML BOTTLE BOTH EYES SCH (21:53)
[2019-03-04] MEDS: FLUoxetine HCl Oral Soln 20 MG/5 ML UDC GTUBE SCH (08:01)
[2019-03-04] MEDS: Aspirin 81 MG TAB.CHEW GTUBE SCH (08:02)
[2019-03-04] MEDS: Multivit/Ca/Min/Fe/FA 1 TAB TABLET GTUBE SCH (08:02)
[2019-03-04] MEDS: hydrALAZINE 25 MG TABLET GTUBE SCH ×2 (08:03→18:03)
[2019-03-04] MEDS: amLODIPine 5 MG TABLET GTUBE SCH (08:03)
[2019-03-04 08:49] LABS: Basophils % 0.3 %; Eosinophils % 0.4 %; Hematocrit 31.7 % (37.5-50.1); Hemoglobin 10.5 g/dL (12.9-16.9); Immature Granulocytes % 0.4 % (0-4); Lymphocytes # 2.1 K/mcL (0.6-4.6); Lymphocytes % 18.5 %; Mean Corpuscular HGB Conc 33.1 g/dL (31.6-35.5); Mean Corpuscular Hemoglobin 32.6 pg (28.0-33.3); Mean Corpuscular Volume 98.4 fL (83.0-100.0); Mean Platelet Volume 10.5 fL (9.4-12.4); Monocytes # 1.1 K/mcL (0.0-1.3); Monocytes % 9.8 %; Neutrophils # 7.9 K/mcL (1.6-8.9); Platelet Count 357 K/mcL (140-400); Red Blood Count 3.22 M/mcL (4.19-5.50); Red Cell Distribution Width 13.2 % (11.5-14.5); Segmented Neutrophils % 70.6 %; White Blood Count 11.2 K/mcL (4.3-11.1)
[2019-03-04 09:45] LABS: BUN/Creatinine Ratio 29 (6-26); Blood Urea Nitrogen 20 mg/dL (8-23); Calcium 8.2 mg/dL (8.6-10.3); Carbon Dioxide 24 mEq/L (23-29); Chloride 96 mEq/L (98-107); Glucose 208 mg/dL (70-105); Osmolality,Calculated 273 (280-300); Potassium 4.4 mEq/L (3.5-5.1); Sodium 127 mEq/L (136-145); eGFR For African Americans > 60 (> 60); eGFR For Non-African Americans > 60 (> 60)
[2019-03-04 10:01] LABS: Bilirubin,Urine Negative (Negative); Blood,Urine Negative (Negative); Clarity,Urine Clear (Clear); Color,Urine Yellow (Yellow); Glucose,Urine (UA) Normal (Normal); Ketones,Urine Negative (Negative); Leukocyte Esterase,Urine Negative (Negative); Nitrite,Urine Negative (Negative); Protein,Urine 30 mg/dL (Neg-Trace); Specific Gravity,Urine 1.015 (1.010-1.025)
[2019-03-04 10:16] LABS: Bacteria,Urine Few per hpf (None-Few); Mucus,Urine Few (Few); RBC,Urine 0-3 per hpf (0-3); WBC,Urine 0-3 per hpf (0-3)
--- NOTE | 2019-03-04 11:25 | Internal Med Progress Note ---
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 Patient continues with garbled speech during complex sentence structure. Patient continues to show poor cooperation with therapy and does not follow commands during ADLs per nursing. No motor deficits noted on exam. Patient has shown increasing drowsiness over the past 2 days, but continues to be easily awakened by verbal. Patient noted to continue to have difficulty staying awake and frequent falls asleep if not stimulated. Has showed some improvement with speech therapy. We will continue with therapy and current plan of care. We will continue with a blood pressure goal of less than 160. Qualifiers: CVA mechanism: unspecified Qualified Code(s): I63.9 - Cerebral infarction, unspecified (2) BPH (benign prostatic hyperplasia) Current Visit: Yes Status: Chronic Assessment and plan: No acute issues during his stay here. We will continue to monitor patient's voiding. Qualifiers: Lower urinary tract symptom presence: unspecified whether lower urinary tract symptoms present Qualified Code(s): N40.0 - Benign prostatic hyperplasia without lower urinary tract symptoms (3) Hypertension Current Visit: Yes Status: Chronic Assessment and plan: No acute issues. We will continue to maintain a systolic blood pressure goal of less than 160. Will start patient on when necessary clonidine. Qualifiers: Hypertension type: essential hypertension Qualified Code(s): I10 - Essential (primary) hypertension (4) Dysphagia Current Visit: Yes Status: Acute Assessment and plan: Patient continues with garbled speech. At times patient will have a one-word answers that will be clear. Speech therapy should reports patient had shown some improvement. Patient continues with total nutritional intake per gastrostomy tube and remains nothing by mouth. Patient currently is going to receive his tube feeding infusion during the night and per speech therapy will attempt advancing his speech therapy during the day. Patient's labs were reviewed which shows a sodium 127. We will decrease his free water intake to 75 mL every 6 hours. Qualifiers: Dysphagia type: unspecified Qualified Code(s): R13.10 - Dysphagia, unspecified (5) Pneumonia Current Visit: Yes Status: Acute Assessment and plan: Patient had been diagnosed with a left lower left lobe pneumonia. Patient continues on Levaquin at this time. Remains afebrile. No productive cough noted or dyspnea. Patient noted to have elevated fever and increased drowsiness today. Chest x-ray was repeated which shows no changes. Labs reviewed which shows WBC has been trending up with most recent at 11.2. Urinalysis was obtained with results triggering a culture. We will continue with current plan of care Qualifiers: Pneumonia type: due to unspecified organism Laterality: left Lung location: lower lobe of lung Qualified Code(s): J18.1 - Lobar pneumonia, unspecified organism - Time Spent With Patient less than 15 minutes - Subjective Interval history: Patient appears increasingly drowsy, but easily awakened and able to answer simple instant responses. Patient noted to be more difficult today to obtain responses to simple questions. After the initial response his speech becomes garbled. Nurse reports patient had a elevated temperature last evening greater than 102. Patient had labs and chest x-ray obtained. Chest x-ray shows no interval change of this left lower lobe pneumonia. Patient's labs reviewed which shows his WBC trending up at 11.2. His sodium was noted to be 127. Patient had a urinalysis that was obtained which has triggered a culture. Patient has had complaints of pain and facial grimacing when moving to his left arm, mostly to his left wrist. X-ray was obtained, which showed no acute process - Constitutional Vitals: Temp Pulse Resp BP Pulse Ox 102.1 F H 88 18 151/66 94 03/04/19 07:14 03/04/19 07:14 03/04/19 07:14 03/04/19 07:14 03/04/19 07:14 General appearance: Present: cooperative, A&O X 1, no acute distress Exam: Patient does respond to his name but unable to assess his orientation due to his dysarthria. Patient currently unable to follow most commands. - Head Head exam: Present: atraumatic, normocephalic - Eye Eye exam: Present: PERRL, conjuntiva pink, sclera anicteric Pupils: Present: PERRL - Neck Neck exam general surgery: Present: supple, trachea midline. Absent: lymphadenopathy - Respiratory Respiratory exam: Present: decreased breath sounds, CTAB. Absent: accessory muscle use, rales, rhonchi, wheezes - Cardiovascular Cardiovascular exam: Present: RRR, +S1, +S2. Absent: diastolic murmur, gallop, rubs, systolic murmur - GI/Abdominal GI/Abdominal exam: Present: normal bowel sounds, soft, no peritoneal signs. Absent: distended, tenderness Additional comments: Patient continues with tube feeding via gastrostomy tube which appears healthy and insertion site. - Extremities Exam Extremities exam: Present: warm, radial pulses palpable and symmetrical. Absent: calf tenderness, cyanotic, pedal edema Additional comments: Noted grimacing during range of motion of left shoulder and wrist. Obvious injury or deformity noted. - Neurological Exam Neurological exam: Present: CN II-XII intact, speech deficit. Absent: pronater drift, facial droop Additional comments: Patient continues with severe dysarthria, been able to have clear one to 2 word spontaneous responses to simple questions but with any attempts to have complex sentencing he has garbled speech. Patient noted to have decreased LOC today. More drowsy, but is easily awakened by verbal. Patient unable to follow most simple commands. No motor deficits noted on exam - Skin Skin exam: Present: dry, intact Internal Medicine: Result - Labs CBC & Chem 7: 03/04/19 08:10 03/04/19 08:10 Labs: Short CBC 03/04/19 Range/Units 08:10 WBC 11.2 H (4.3-11.1) K/mcL Hgb 10.5 L (12.9-16.9) g/dL Hct 31.7 L (37.5-50.1) % Plt Count 357 (140-400) K/mcL Neutrophils # 7.9 (1.6-8.9) K/mcL BMP 03/04/19 08:10 Sodium 127 L Potassium 4.4 Chloride 96 L Carbon Dioxide 24 BUN 20 Creatinine 0.69 L Glucose 208 H Calcium 8.2 L Urine 03/04/19 Range/Units 09:50 Urine Color Yellow (Yellow) Urine Clarity Clear (Clear) Urine pH 7.0 (5.0-8.0) pH Units Ur Specific [place] 1.015 (1.010-1.025) Urine Protein 30 H (Neg-Trace) mg/dL Urine Glucose (UA) Normal (Normal) mg/dL - ABG Interpretation ABG results: PT/INR, D-dimer PT 14.7 Seconds (9.4-12.1) H 02/16/19 05:30 - Impressions Impressions Chest X-Ray 03/04/19 07:36 IMPRESSION: Interval improvement in left lung base pulmonary opacity. No evidence of enlarging pleural effusion. No evidence of pneumothorax. D/ / 03/04/2019 08:12:40 Felix Reis MD / Katelyn Vasquez Interpreting Provider: Felix Reis MD Wrist X-Ray 03/04/19 10:05 IMPRESSION: 1. No acute abnormality involving the left wrist. 2. Degenerative changes at the 4th PIP joint. D/ / Eitan Anguiano MD / Eitan Anguiano MD Interpreting Provider: Eitan Anguiano MD - VTE Documentation of Mechanical Device: Graduated compression elastic hosiery Consult Discharge Plan - Plan Referrals: Nicolás Marshall DO [Primary Care Provider] -
[2019-03-04] MEDS: levoFLOXacin 500 MG/100 ML 500 MG/100 ML BAG IVPB SCH (11:26)
[2019-03-04] MEDS: Meropenem 1,000 MG in 0.9 % Sodium Chloride Mini Bag 100 ML IVPB SCH ×2 (13:21→21:23)
[2019-03-04 15:39] LABS: Albumin 2.8 g/dL (3.5-5.7); Albumin/Globulin Ratio 0.8 (1.1-2.2); Bilirubin,Direct 0.2 mg/dL (0.0-0.2); Bilirubin,Indirect 0.4 mg/dL (0.0-1.2); Bilirubin,Total 0.6 mg/dL (0.3-1.0); Globulin 3.3 g/dL (2.4-3.5); Total Protein 6.1 g/dL (6.4-8.9)
[2019-03-04] MEDS: Latanoprost 2.5 ML BOTTLE BOTH EYES SCH (21:24)
[2019-03-05] MEDS: Meropenem 1,000 MG in 0.9 % Sodium Chloride Mini Bag 100 ML IVPB SCH ×3 (05:33→22:36)
[2019-03-05] MEDS: Multivit/Ca/Min/Fe/FA 1 TAB TABLET GTUBE SCH (07:54)
[2019-03-05] MEDS: Aspirin 81 MG TAB.CHEW GTUBE SCH (07:54)
[2019-03-05] MEDS: FLUoxetine HCl Oral Soln 20 MG/5 ML UDC GTUBE SCH (07:54)
[2019-03-05] MEDS: hydrALAZINE 25 MG TABLET GTUBE SCH ×4 (07:54→23:26)
[2019-03-05] MEDS: amLODIPine 5 MG TABLET GTUBE SCH (07:54)
--- NOTE | 2019-03-05 10:25 | Internal Med Progress Note ---
Date of Encounter: 03/05/19 Time of Encounter: 09:15 - Assessment and plan (1) CVA (cerebral vascular accident) Current Visit: Yes Status: Acute Assessment and plan: Therapy continues. He is showing slow improvement but orientation is still markedly limited. Qualifiers: CVA mechanism: unspecified Qualified Code(s): I63.9 - Cerebral infarction, unspecified (2) BPH (benign prostatic hyperplasia) Current Visit: Yes Status: Chronic Assessment and plan: Seemingly stable, currently. Qualifiers: Lower urinary tract symptom presence: unspecified whether lower urinary tract symptoms present Qualified Code(s): N40.0 - Benign prostatic hyperplasia without lower urinary tract symptoms (3) Hypertension Current Visit: Yes Status: Chronic Assessment and plan: Controlled. Qualifiers: Hypertension type: essential hypertension Qualified Code(s): I10 - Essential (primary) hypertension (4) Dysphagia Current Visit: Yes Status: Acute Assessment and plan: Cooperation limits his oral care and assessment of swallowing abilities. PEG tube in place. Qualifiers: Dysphagia type: unspecified Qualified Code(s): R13.10 - Dysphagia, unspecified - Subjective Interval history: Patient is more alert and responsive than yesterday. In fact, he is more verbally interactive than at any point previously. He denies pain area however, when touched, especially in his left upper extremity, he repeats "wait, wait, wait, wait." When I discussed his infection with fever yesterday, he responded, "Well, we will have to see what is going on." Again, there is no definite distress or complaint. Nursing notes that he is having frequent loose stools and so we will send a sample for assay for C. difficile. Nursing notes that his temperature 100.4 is axillary. I discussed management of patient's care with nursing staff. - Constitutional Vitals: Temp Pulse Resp BP Pulse Ox 100.4 F H 86 26 138/92 95 03/05/19 07:31 03/05/19 07:31 03/05/19 07:31 03/05/19 07:31 03/04/19 19:15 Exam: Examination: (Except as mentioned above): General: In no apparent distress. Alert and oriented 1, at best. Nondiaphoretic - definitely an improvement over yesterday. He is flushed but not as much as yesterday. Head: Atraumatic and normocephalic. Respiratory: No use of accessory muscles. Lungs are clear throughout. Normal airflow. Cardiovascular: Regular rate and rhythm without murmur appreciated. Abdomen: Bowel sounds are normal. No hepatosplenomegaly mass or tenderness appreciated. Obese and therefore difficult to palpate deeply. PEG tube site is dry and intact. Extremities: No cyanosis clubbing or edema. Potential tenderness at left upper extremity but this is uncertain. No focal weakness or edema, etc. Skin: Warm and non-diaphoretic with no new lesions noted. Internal Medicine: Result - Labs CBC & Chem 7: 03/04/19 08:10 03/04/19 08:10 Labs: Liver Function 03/04/19 Range/Units 07:37 Total Bilirubin 0.6 (0.3-1.0) mg/dL Direct Bilirubin 0.2 (0.0-0.2) mg/dL AST 68 H (13-39) Units/L ALT 87 H (7-52) Units/L Alkaline Phosphatase 290 H (34-104) Units/L Albumin 2.8 L (3.5-5.7) g/dL - ABG Interpretation ABG results: PT/INR, D-dimer PT 14.7 Seconds (9.4-12.1) H 02/16/19 05:30 - Impressions Impressions Chest X-Ray 03/04/19 07:36 IMPRESSION: 1. Interval improvement in left lung base pulmonary opacity. 2. No evidence of enlarging pleural effusion. No evidence of pneumothorax. D/ / 03/04/2019 08:12:40 Felix Reis MD / Katelyn Vasquez Interpreting Provider: Felix Reis MD Wrist X-Ray 03/04/19 10:05 IMPRESSION: 1. No acute abnormality involving the left wrist. 2. Degenerative changes at the 4th PIP joint. D/ / Eitan Anguiano MD / Eitan Anguiano MD Interpreting Provider: Eitan Anguiano MD - VTE Documentation of Mechanical Device: Graduated compression elastic hosiery Consult Discharge Plan - Plan Referrals: Nicolás Marshall DO [Primary Care Provider] -
[2019-03-05 10:44] LABS: Basophils % 0.3 %; Eosinophils # 0.2 K/mcL (0.0-0.6); Eosinophils % 2.4 %; Hematocrit 30.5 % (37.5-50.1); Hemoglobin 9.9 g/dL (12.9-16.9); Immature Granulocytes % 0.4 % (0-4); Lymphocytes # 2.2 K/mcL (0.6-4.6); Lymphocytes % 22.8 %; Mean Corpuscular HGB Conc 32.5 g/dL (31.6-35.5); Mean Corpuscular Volume 98.7 fL (83.0-100.0); Mean Platelet Volume 10.7 fL (9.4-12.4); Monocytes % 10.1 %; Neutrophils # 6.1 K/mcL (1.6-8.9); Platelet Count 365 K/mcL (140-400); Red Blood Count 3.09 M/mcL (4.19-5.50); Red Cell Distribution Width 13.5 % (11.5-14.5); White Blood Count 9.5 K/mcL (4.3-11.1)
[2019-03-05 11:26] LABS: BUN/Creatinine Ratio 34 (6-26); Blood Urea Nitrogen 24 mg/dL (8-23); Calcium 7.7 mg/dL (8.6-10.3); Carbon Dioxide 28 mEq/L (23-29); Chloride 98 mEq/L (98-107); Glucose 182 mg/dL (70-105); Osmolality,Calculated 279 (280-300); Potassium 3.9 mEq/L (3.5-5.1); Sodium 130 mEq/L (136-145); eGFR For African Americans > 60 (> 60); eGFR For Non-African Americans > 60 (> 60)
[2019-03-05] MEDS: Latanoprost 2.5 ML BOTTLE BOTH EYES SCH (23:26)
[2019-03-06] MEDS: Meropenem 1,000 MG in 0.9 % Sodium Chloride Mini Bag 100 ML IVPB SCH ×3 (05:23→20:58)
[2019-03-06] MEDS: Multivit/Ca/Min/Fe/FA 1 TAB TABLET GTUBE SCH (09:17)
[2019-03-06] MEDS: amLODIPine 5 MG TABLET GTUBE SCH (09:17)
[2019-03-06] MEDS: hydrALAZINE 25 MG TABLET GTUBE SCH ×2 (09:17→17:05)
[2019-03-06] MEDS: Aspirin 81 MG TAB.CHEW GTUBE SCH (09:17)
[2019-03-06] MEDS: FLUoxetine HCl Oral Soln 20 MG/5 ML UDC GTUBE SCH (09:18)
--- NOTE | 2019-03-06 13:21 | Internal Med Progress Note ---
Date of Encounter: 03/06/19 Time of Encounter: 13:20 - Assessment and plan (1) CVA (cerebral vascular accident) Current Visit: Yes Status: Acute Assessment and plan: Stills shows signs of improving. Therapies will continue and assessment as above disposition, based on that. I suspect that he will require ECF placement. Qualifiers: CVA mechanism: unspecified Qualified Code(s): I63.9 - Cerebral infarction, unspecified (2) BPH (benign prostatic hyperplasia) Current Visit: Yes Status: Chronic Assessment and plan: Apparently stable. Qualifiers: Lower urinary tract symptom presence: unspecified whether lower urinary tract symptoms present Qualified Code(s): N40.0 - Benign prostatic hyperplasia without lower urinary tract symptoms (3) Hypertension Current Visit: Yes Status: Chronic Assessment and plan: Adequate control. Qualifiers: Hypertension type: essential hypertension Qualified Code(s): I10 - Essential (primary) hypertension (4) Dysphagia Current Visit: Yes Status: Acute Assessment and plan: As I told his , he needs to be able to safely protect his airway. Qualifiers: Dysphagia type: unspecified Qualified Code(s): R13.10 - Dysphagia, unspecified (5) Pneumonia Current Visit: Yes Status: Acute Assessment and plan: Clinically improving on second day of changed antibiotics. Qualifiers: Pneumonia type: due to unspecified organism Laterality: left Lung location: lower lobe of lung Qualified Code(s): J18.1 - Lobar pneumonia, unspecified organism - Subjective Interval history: Patient is more alert, still, than yesterday. He responds in complete sentences at times and other times seems to be unable to respond. He continued to have pa inful grimaces with manipulation of his arms. However, he denies pain with all palpation or range of motion which is passive. I spoke with his , at length, about his progress. He still feel that he is not emerged you know he is improving. We talked about his pneumonia, change in antibiotics, and his inability to protect his airway so we are not giving him much in the way of oral intake, only by speech therapy. I explained that he will probably need senior living care on a longer basis and just a few days so that long-term placement needs to be discussed. She understands this by her expression. Nursing notes that he is having frequent loose stools but C. difficile testing was negative. He has no temperature elevation today. I discussed management of patient's care with nursing staff. - Constitutional Vitals: Temp Pulse Resp BP Pulse Ox 98.4 F 86 16 123/58 96 03/06/19 07:11 03/06/19 07:11 03/06/19 07:11 03/06/19 07:11 03/06/19 07:11 Exam: Examination: (Except as mentioned above): See comments in subjective about his responsiveness. General: In no apparent distress. Alert and oriented 1. Nondiaphoretic. Head: Atraumatic and normocephalic. Respiratory: No use of accessory muscles. Lungs are clear throughout. Normal airflow. Cardiovascular: Regular rate and rhythm without murmur appreciated. Abdomen: Bowel sounds are normal. No hepatosplenomegaly mass or tenderness a ppreciated. Obese and therefore difficult to palpate deeply. Extremities: No cyanosis clubbing or edema. Skin: Warm and non-diaphoretic with no new lesions noted. Internal Medicine: Result - Labs CBC & Chem 7: 03/05/19 09:39 03/05/19 09:39 - ABG Interpretation ABG results: PT/INR, D-dimer PT 14.7 Seconds (9.4-12.1) H 02/16/19 05:30 - VTE Documentation of Mechanical Device: Graduated compression elastic hosiery Consult Discharge Plan - Plan Referrals: Nicolás Marshall DO [Primary Care Provider] -
[2019-03-06] MEDS: Latanoprost 2.5 ML BOTTLE BOTH EYES SCH (20:59)
[2019-03-07] MEDS: hydrALAZINE 25 MG TABLET GTUBE SCH ×3 (00:19→17:17)
[2019-03-07] MEDS: Meropenem 1,000 MG in 0.9 % Sodium Chloride Mini Bag 100 ML IVPB SCH ×3 (04:41→21:17)
[2019-03-07 05:36] LABS: Basophils % 0.4 %; Eosinophils # 0.5 K/mcL (0.0-0.6); Eosinophils % 5.2 %; Hematocrit 30.2 % (37.5-50.1); Hemoglobin 9.7 g/dL (12.9-16.9); Immature Granulocytes % 0.5 % (0-4); Lymphocytes # 2.9 K/mcL (0.6-4.6); Lymphocytes % 28.6 %; Mean Corpuscular HGB Conc 32.1 g/dL (31.6-35.5); Mean Corpuscular Hemoglobin 32.1 pg (28.0-33.3); Mean Platelet Volume 10.1 fL (9.4-12.4); Monocytes # 0.9 K/mcL (0.0-1.3); Neutrophils # 5.6 K/mcL (1.6-8.9); Platelet Count 397 K/mcL (140-400); Red Blood Count 3.02 M/mcL (4.19-5.50); Red Cell Distribution Width 13.7 % (11.5-14.5); Segmented Neutrophils % 56.3 %
[2019-03-07] MEDS: amLODIPine 5 MG TABLET GTUBE SCH (07:41)
[2019-03-07] MEDS: FLUoxetine HCl Oral Soln 20 MG/5 ML UDC GTUBE SCH (07:41)
[2019-03-07] MEDS: Multivit/Ca/Min/Fe/FA 1 TAB TABLET GTUBE SCH (07:42)
[2019-03-07] MEDS: Aspirin 81 MG TAB.CHEW GTUBE SCH (07:42)
--- NOTE | 2019-03-07 10:29 | Internal Med Progress Note ---
Date of Encounter: 03/07/19 Time of Encounter: 10:27 - Assessment and plan (1) CVA (cerebral vascular accident) Current Visit: Yes Status: Acute Assessment and plan: Continue PT, OT and ST. Will follow progress. No new neurological deficits. Follow up with neurologist as scheduled. Qualifiers: CVA mechanism: unspecified Qualified Code(s): I63.9 - Cerebral infarction, unspecified (2) Hypertension Current Visit: Yes Status: Chronic Assessment and plan: Controlled with current medication. Monitor blood pressure. Qualifiers: Hypertension type: essential hypertension Qualified Code(s): I10 - Essential (primary) hypertension (3) BPH (benign prostatic hyperplasia) Current Visit: Yes Status: Chronic Assessment and plan: No new symptoms. Continue current medication. Qualifiers: Lower urinary tract symptom presence: unspecified whether lower urinary tract symptoms present Qualified Code(s): N40.0 - Benign prostatic hyperplasia without lower urinary tract symptoms (4) Dysphagia Current Visit: Yes Status: Acute Assessment and plan: Continue enternal feeds through G-tube. Qualifiers: Dysphagia type: unspecified Qualified Code(s): R13.10 - Dysphagia, unspecified (5) Pneumonia Current Visit: Yes Status: Acute Assessment and plan: Stable. Continue atb. Monitor for improvement. Qualifiers: Pneumonia type: aspiration pneumonia Aspiration pneumonia type: unspecified Laterality: left Lung location: lower lobe of lung Qualified Code(s): J69.0 - Pneumonitis due to inhalation of food and vomit - Subjective Interval history: Sitting up in wheelchair, participating with therapy. Was max assist of 3 to get out of bed. Patient able to bear weight but does not follow directions with motor planning. Patient is currently NPO. Reports that has been feeding him. Being treated for pneumonia, this could be possible aspiration. White blood cell count 10.0 today. Low-grade fever. ECF placement has been discussed with family. Has been hypersensitive to touch. - Constitutional Vitals: Temp Pulse Resp BP Pulse Ox 99.6 F 79 18 128/51 97 03/07/19 06:47 03/07/19 06:47 03/07/19 06:47 03/07/19 06:47 03/07/19 06:47 General appearance: Present: cooperative, A&O X 1, no acute distress - Head Head exam: Present: atraumatic, normocephalic - Eye Eye exam: Present: PERRL, conjuntiva pink, sclera anicteric Pupils: Present: PERRL - Neck Neck exam general surgery: Present: supple, trachea midline. Absent: lymphadenopathy - Respiratory Respiratory exam: Present: CTAB. Absent: accessory muscle use, rales, rhonchi, wheezes - Cardiovascular Cardiovascular exam: Present: RRR, +S1, +S2. Absent: diastolic murmur, gallop, rubs, systolic murmur - GI/Abdominal GI/Abdominal exam: Present: normal bowel sounds, soft, no peritoneal signs. Absent: distended, tenderness - Extremities Exam Extremities exam: Present: warm, radial pulses palpable and symmetrical. Absent: calf tenderness, cyanotic, pedal edema - Neurological Exam Neurological exam: Present: CN II-XII intact, oriented X3, no focal deficits. Absent: pronater drift, facial droop, speech deficit - Skin Skin exam: Present: dry, intact Internal Medicine: Result - Labs CBC & Chem 7: 03/07/19 05:10 03/05/19 09:39 Labs: Short CBC 03/07/19 Range/Units 05:10 WBC 10.0 (4.3-11.1) K/mcL Hgb 9.7 L (12.9-16.9) g/dL Hct 30.2 L (37.5-50.1) % Plt Count 397 (140-400) K/mcL Neutrophils # 5.6 (1.6-8.9) K/mcL - ABG Interpretation ABG results: PT/INR, D-dimer PT 14.7 Seconds (9.4-12.1) H 02/16/19 05:30 - VTE Documentation of Mechanical Device: Graduated compression elastic hosiery Consult Discharge Plan - Plan Referrals: Nicolás Marshall DO [Primary Care Provider] -
[2019-03-07] MEDS: Latanoprost 2.5 ML BOTTLE BOTH EYES SCH (21:18)
[2019-03-08] MEDS: hydrALAZINE 25 MG TABLET GTUBE SCH ×3 (04:39→16:57)
[2019-03-08] MEDS: Meropenem 1,000 MG in 0.9 % Sodium Chloride Mini Bag 100 ML IVPB SCH ×3 (05:42→21:38)
--- NOTE | 2019-03-08 08:28 | Internal Med Progress Note ---
Date of Encounter: 03/08/19 Time of Encounter: 08:26 - Assessment and plan (1) CVA (cerebral vascular accident) Current Visit: Yes Status: Acute Assessment and plan: Continue PT, OT and ST. Will follow progress. No new neurological deficits. Follow up with neurologist as scheduled. Qualifiers: CVA mechanism: unspecified Qualified Code(s): I63.9 - Cerebral infarction, unspecified (2) Hypertension Current Visit: Yes Status: Chronic Assessment and plan: Controlled with current medication. Monitor blood pressure. Qualifiers: Hypertension type: essential hypertension Qualified Code(s): I10 - Essential (primary) hypertension (3) BPH (benign prostatic hyperplasia) Current Visit: Yes Status: Chronic Assessment and plan: No new symptoms. Continue current medication. Qualifiers: Lower urinary tract symptom presence: unspecified whether lower urinary tract symptoms present Qualified Code(s): N40.0 - Benign prostatic hyperplasia without lower urinary tract symptoms (4) Dysphagia Current Visit: Yes Status: Acute Assessment and plan: Continue enternal feeds through G-tube. Qualifiers: Dysphagia type: unspecified Qualified Code(s): R13.10 - Dysphagia, unspecified (5) Pneumonia Current Visit: Yes Status: Acute Assessment and plan: Stable. Continue atb. Monitor for improvement. Qualifiers: Pneumonia type: aspiration pneumonia Aspiration pneumonia type: unspecified Laterality: left Lung location: lower lobe of lung Qualified Code(s): J69.0 - Pneumonitis due to inhalation of food and vomit (6) Vitamin D deficiency Current Visit: Yes Status: Acute Assessment and plan: vitamin d level 29, will start supplement. - Time Spent With Patient less than 15 minutes - Subjective Interval history: lying in bed, responds occasionally with one-word responses to questions. max assist X 3 for transfers due to poor motor planning. on atb for PNA. continues to run low grade fever. NPO, has g-tube for enteral feeds. - Constitutional Vitals: Temp Pulse Resp BP Pulse Ox 100.5 F H 84 16 127/66 95 03/08/19 07:00 03/08/19 07:00 03/08/19 07:00 03/08/19 07:00 03/08/19 07:00 General appearance: Present: cooperative, A&O X 1, no acute distress - Head Head exam: Present: atraumatic, normocephalic - Eye Eye exam: Present: PERRL, conjuntiva pink, sclera anicteric Pupils: Present: PERRL - Neck Neck exam general surgery: Present: supple, trachea midline. Absent: lymphadenopathy - Respiratory Respiratory exam: Present: CTAB. Absent: accessory muscle use, rales, rhonchi, wheezes - Cardiovascular Cardiovascular exam: Present: RRR, +S1, +S2. Absent: diastolic murmur, gallop, rubs, systolic murmur - GI/Abdominal GI/Abdominal exam: Present: normal bowel sounds, soft, no peritoneal signs. Absent: distended, tenderness - Extremities Exam Extremities exam: Present: warm, radial pulses palpable and symmetrical. Abs ent: calf tenderness, cyanotic, pedal edema - Neurological Exam Neurological exam: Present: CN II-XII intact, oriented X3, no focal deficits. Absent: pronater drift, facial droop, speech deficit - Skin Skin exam: Present: dry, intact Additional comments: g-tube site nonindurated. Internal Medicine: Result - Labs CBC & Chem 7: 03/07/19 05:10 03/05/19 09:39 - ABG Interpretation ABG results: PT/INR, D-dimer PT 14.7 Seconds (9.4-12.1) H 02/16/19 05:30 - VTE Documentation of Mechanical Device: Graduated compression elastic hosiery Consult Discharge Plan - Plan Referrals: Nicolás Marshall DO [Primary Care Provider] -
[2019-03-08] MEDS: amLODIPine 5 MG TABLET GTUBE SCH (08:50)
[2019-03-08] MEDS: FLUoxetine HCl Oral Soln 20 MG/5 ML UDC GTUBE SCH (08:50)
[2019-03-08] MEDS: Aspirin 81 MG TAB.CHEW GTUBE SCH (08:50)
[2019-03-08] MEDS: Multivit/Ca/Min/Fe/FA 1 TAB TABLET GTUBE SCH (08:50)
[2019-03-08] MEDS ORDERED: Isovue-370 500 ML BOTTLE IVP ONE (10:23)
[2019-03-08 11:47] LABS: eGFR For African Americans > 60 (> 60); eGFR For Non-African Americans > 60 (> 60)
[2019-03-08] MEDS: Cholecalciferol (D-3) 1,000 UNIT (25MCG) TABLET PO SCH (16:57)
[2019-03-08] MEDS: Latanoprost 2.5 ML BOTTLE BOTH EYES SCH (21:38)
[2019-03-09] MEDS: hydrALAZINE 25 MG TABLET GTUBE SCH ×2 (01:23→07:49)
[2019-03-09] MEDS: Meropenem 1,000 MG in 0.9 % Sodium Chloride Mini Bag 100 ML IVPB SCH (05:12)
[2019-03-09] MEDS: Aspirin 81 MG TAB.CHEW GTUBE SCH (07:49)
[2019-03-09] MEDS: Cholecalciferol (D-3) 1,000 UNIT (25MCG) TABLET PO SCH (07:50)
[2019-03-09] MEDS: FLUoxetine HCl Oral Soln 20 MG/5 ML UDC GTUBE SCH (07:50)
[2019-03-09] MEDS: amLODIPine 5 MG TABLET GTUBE SCH (07:50)
--- NOTE | 2019-03-09 08:56 | Physician Discharge Referral ---
ExtendedCare Referral Info Provider in Charge after Transfer: PCP Institutional Level of Care: Skilled - Diagnosis (1) CVA (cerebral vascular accident) Priority: Primary Status: Acute (2) Hypertension Priority: Secondary Status: Chronic (3) BPH (benign prostatic hyperplasia) Priority: Secondary Status: Chronic (4) Dysphagia Priority: Secondary Status: Acute (5) Pneumonia Priority: Secondary Status: Acute (6) Vitamin D deficiency Priority: Secondary Status: Acute - Transfer Medications Home Medications: Losartan Potassium [Cozaar] 100 mg PO DAILY 06/29/17 [History] Aspirin [Lo-Dose Aspirin EC] 81 mg PO DAILY 01/20/19 [History] Rosuvastatin [Crestor] 20 mg PO DAILY 01/20/19 [History] Amlodipine Besylate 10 mg PO DAILY 02/15/19 [History] Carvedilol 37.5 mg PO Q12HR 02/15/19 [History] Doxazosin [Cardura] 1 mg PO HS 02/15/19 [History] Esomeprazole Magnesium [Nexium] 40 mg PO BID 02/15/19 [History] FLUoxetine HCl [Fluoxetine HCl] 5 ml PO DAILY 02/15/19 [History] Multivitamin [Daily Multiple Vitamin] 1 each PO DAILY 02/15/19 [History] Quetiapine Fumarate [SEROquel] 12.5 mg PO HS 02/15/19 [History] hydrALAZINE [HydrALAZINE] 75 mg PO Q8HR 02/15/19 [History] Allergies/Adverse Reactions: Allergy/AdvReac Type Severity Reaction Status Date / Time Penicillins Allergy See Verified 06/29/18 16:36 Comments Poison Amanda Extract Allergy See Verified 02/15/19 18:01 Comments shellfish derived Allergy Rash Verified 06/29/18 16:36 - Respiratory Orders Smoking Cessation: Smoking cessation has been advised. For more information, call the [place] Tobacco Quit Line at 7-843-TLDN-NOW. - Advance Directives Code Status: Full Code - Mobility Orders Chair - Rehabiliation Orders Rehab Potential: Fair Rehab Orders: Evaluation for Physical Therapy, Evaluation for Occupational Therapy, Evaluation for Speech Therapy - Diet Orders Tube Feedings (type/amount/rate): NPO, see attached orders for tube feed. CERTIFICATION: I certify that the transfer of the above named patient to an Extended Care Facility is necessary for the continuing treatment of the diagnosis listed. The above information is true and accurate reflection of patient's current condition. Confidential - Redisclosure prohibited without a patient's written consent.
[2019-03-09] MEDS ORDERED: Multivitamin Liquid 15 ML UDC GTUBE SCH (09:00)
--- NOTE | 2019-03-09 09:54 | Discharge Summary ---
Orders not resulted at time of discharge: Pending orders 03/04/19 08:15 Culture,Blood [BC] Stat Date of Encounter: 03/09/19 Time of Encounter: 09:48 - Discharge Diagnosis (1) CVA (cerebral vascular accident) Priority: Primary Status: Acute Comments: Continue PT, OT and ST. Follow up with neurologist as scheduled. Qualifiers: CVA mechanism: unspecified Qualified Code(s): I63.9 - Cerebral infarction, unspecified (2) Hypertension Priority: Secondary Status: Chronic Comments: Controlled with current medication. Monitor blood pressure. Qualifiers: Hypertension type: essential hypertension Qualified Code(s): I10 - Essential (primary) hypertension (3) BPH (benign prostatic hyperplasia) Priority: Secondary Status: Chronic Comments: Stable. Continue current medication. Qualifiers: Lower urinary tract symptom presence: unspecified whether lower urinary tract symptoms present Qualified Code(s): N40.0 - Benign prostatic hyperplasia without lower urinary tract symptoms (4) Dysphagia Priority: Secondary Status: Acute Comments: Continue speech therapy. NPO. G-tube feeds. Qualifiers: Dysphagia type: unspecified Qualified Code(s): R13.10 - Dysphagia, unspecified (5) Pneumonia Priority: Secondary Status: Acute Comments: Continue IV antibiotics for 5 more days. Qualifiers: Pneumonia type: aspiration pneumonia Aspiration pneumonia type: unspecified Laterality: left Lung location: lower lobe of lung Qualified Code(s): J69.0 - Pneumonitis due to inhalation of food and vomit (6) Vitamin D deficiency Priority: Secondary Status: Acute Comments: Continue vitamin D supplement. Hospital course: Mr. Magana is a 79 year old male discharging to [facility]. After a right temporal CVA with small subarachnoid hemorrhage. He was originally seen at [facility], received TPA, and transferred to [facility]. Developed worsening symptoms and a aphasia upon his arrival at [facility]. He has been found to have speech difficulties, swallowing problems, and received a PEG tube. He continues to be NPO. Max assist times 3 to transfer due to poor matter planning. Is being treated for aspiration pneumonia with IV antibiotics. Will continue to have 5 more days of antibiotics. Denies pain. Has had low-grade fever. Also had elevated D dimer yesterday but was taken for CT of chest and that was negative for PE. Discharge discussed with: patient, family, nurse, social work - Time Spent with Patient Total time spent providing and/or coordinating discharge services: Time spent: Greater than 30 minutes - Discharge Medications Prescriptions: No Action Losartan Potassium [Cozaar] 100 mg PO DAILY Rosuvastatin [Crestor] 20 mg PO DAILY Aspirin [Lo-Dose Aspirin EC] 81 mg PO DAILY FLUoxetine HCl [Fluoxetine HCl] 5 ml PO DAILY Carvedilol 37.5 mg PO Q12HR Esomeprazole Magnesium [Nexium] 40 mg PO BID Doxazosin [Cardura] 1 mg PO HS hydrALAZINE [HydrALAZINE] 75 mg PO Q8HR Quetiapine Fumarate [SEROquel] 12.5 mg PO HS Multivitamin [Daily Multiple Vitamin] 1 each PO DAILY Amlodipine Besylate 10 mg PO DAILY Home Medications: Losartan Potassium [Cozaar] 100 mg PO DAILY 06/29/17 [History] Aspirin [Lo-Dose Aspirin EC] 81 mg PO DAILY 01/20/19 [History] Amlodipine Besylate 10 mg PO DAILY 02/15/19 [History] Carvedilol 37.5 mg PO Q12HR 02/15/19 [History] Doxazosin [Cardura] 1 mg PO HS 02/15/19 [History] hydrALAZINE [HydrALAZINE] 75 mg PO Q8HR 02/15/19 [History] Acetaminophen [Tylenol Susp] 650 mg GTUBE Q6HR PRN [id number] 03/09/19 [Rx] Atorvastatin [Lipitor] 40 mg GTUBE DAILY tablet 03/09/19 [Rx] Cholecalciferol (D-3) [Vitamin D] 1,000 unit PO DAILY tablet 03/09/19 [Rx] FLUoxetine HCl [Prozac] 20 mg GTUBE DAILY udc 03/09/19 [Rx] Lansoprazole [Prevacid] 30 mg GTUBE BID capsule. 03/09/19 [Rx] Latanoprost [Xalatan] 1 drop BOTH EYES HS bottle 03/09/19 [Rx] Meropenem [Merrem] 1,000 mg IVPB Q8H 5 Days vial 03/09/19 [Rx] Multivitamin Liquid [Cerovite Liquid] 15 ml GTUBE DAILY udc 03/09/19 [Rx] Quetiapine Fumarate [Seroquel] 25 mg GTUBE HS tablet 03/09/19 [Rx] Allergies/Adverse Reactions: Allergy/AdvReac Type Severity Reaction Status Date / Time Penicillins Allergy See Verified 06/29/18 16:36 Comments Poison Amanda Extract Allergy See Verified 02/15/19 18:01 Comments shellfish derived Allergy Rash Verified 06/29/18 16:36 Date of admission: 02/15/19 15:00 Primary care physician: Nicolás Marshall Consults: 02/15/19 16:30 Consult to Occupational Therapy [CONS] Routine Comment: Right CVA Reason for Consult: Right CVA Does patient have active BEDREST order?: No Is patient medically & hemodynamically stable?: Yes Consult to Physical Therapy [CONS] Routine Comment: Right CVA Reason for Consult: Right CVA Does patient have active BEDREST order?: No Is patient medically & hemodynamically stable?: Yes Consult to Recreational Therapy [CONS] Routine Comment: Consult to Receivable Manager [CONS] Routine Reason for SW Consult: Right CVA 02/15/19 16:31 Consult to Speech Therapy [CONS] Routine Comment: Evaluate, develop and implement POC Reason for Consult: Right CVA Call Completed: Yes 02/16/19 10:15 Consult to Psychology [CONS] Routine Consulting Provider: Drea Adame Reason for Consult: Possible depression; adjustment disorder Call Completed: No Discharging clinician: Eyal Garcia Anticipated date of discharge: 03/09/19 - Constitutional Vitals: Temp Pulse Resp BP Pulse Ox 98 F 81 18 136/65 96 03/08/19 19:06 03/08/19 19:06 03/08/19 19:06 03/08/19 19:06 03/08/19 19:06 General appearance: Present: cooperative, A&O X 1, no acute distress - Head Head exam: Present: atraumatic, normocephalic - Eye Eye exam: Present: PERRL, conjuntiva pink, sclera anicteric Pupils: Present: PERRL - Neck Neck exam general surgery: Present: supple, trachea midline. Absent: lymph adenopathy - Respiratory Respiratory exam: Present: CTAB. Absent: accessory muscle use, rales, rhonchi, wheezes - Cardiovascular Cardiovascular exam: Present: RRR, +S1, +S2. Absent: diastolic murmur, gallop, rubs, systolic murmur - GI/Abdominal GI/Abdominal exam: Present: normal bowel sounds, soft, no peritoneal signs. Absent: distended, tenderness Additional comments: G-tube site non-indurated - Extremities Exam Extremities exam: Present: warm, radial pulses palpable and symmetrical. Absent: calf tenderness, cyanotic, pedal edema - Neurological Exam Neurological exam: Present: CN II-XII intact, oriented X3, no focal deficits. Absent: pronater drift, facial droop, speech deficit - Skin Skin exam: Present: dry, intact - Patient Status Disposition: Transfer SNF Condition: Fair Functional capacity at discharge: wheelchair bound Overall status at discharge: patient is not back to baseline - Discharge Instructions Follow Up With: Nicolás Marshall DO [Primary Care Provider] - - Diet and Activity Activity: as per physical therapy Diet: other - VTE Documentation of Mechanical Device: Graduated compression elastic hosiery
[2019-03-09 10:00] VITALS: BP 123/46
--- NOTE | 2019-03-09 13:59 | Rehab Psychology Progress Note ---
Date of Encounter: 03/09/19 Time of Encounter: 11:00 Subjective - Patient Report Patient Report: Met with without pt - Symptoms Symptoms: She is having difficulty grasping the significant impairments and dependent functioning of as result of his CVA. She is good with ECF but doesn't feel this is permanent. DIscussed MRI and brain damage and that his current condition and progress is a "marathon". Objective - WHODAS Functional Impairment Concentration, Problem-solving, Communication: Severe Self-Care: Extreme Social Functioning: Severe Community Involvement/Hobbies: Extreme - Comments Functional Status Comments: seems to have some unreal expectations of recovery and requested she ask Neurology to go over MRI and further explain impairments. Assessment and Plan - Diagnosis (1) Major neurocognitive disorder - Response to Treatment Response to Treatment: No Change - Prognosis Prognosis: Guarded - Treatment Plan Treatment Plan Recommendations: Change Treatment Plan/Goals Changes in Treatment Plan Goals: Pt DC today to ECF Procedures - Intervention Interventions: Cognitive/Behavioral Therapy - Modality Modality: Psychotherapy 30 minutes - Participants Therapy Participant: Family - Session Time Session Start Time: 11:00 Session Stop Time: 11:30
== END 2019-03-09 12:43 | DRG 56 ==
LOC: INPGRE 15:00